=== PATIENT | female | born 1985 | race Caucasian/White ===

== ENCOUNTER 2024-07-06 09:08 | Outpatient (AMB) | payer OTHER, SELFPAY ==
--- NOTE | 2024-07-06 09:10 | MHC.PC.OV ---
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 Adult Probation Officer Required: No Is last menstrual period known: No (on control) Post menopausal: No Patient : No Allergies amoxicillin Allergy (Intermediate, Verified 07/06/24 09:34) hives Medication List - Last Reviewed 07/06/24 by Charu Rios MA atorvastatin 10 mg PO BEDTIME betamethasone dipropionate 0.05% 1 appl topical DAILY PRN clascoterone 1% (Winlevi) 1 appl topical DAILY desipramine 20 mg PO BEDTIME desogestrel-ethinyl estradiol 0.15-0.03 mg (Apri) 1 tab PO DAILY estradiol 0.01%(0.1mg/gram) 1 g vaginal 2XW folic acid 1 mg PO DAILY guanfacine 2 mg PO DAILY mecobalamin (vitamin B12) 1,000 mcg PO DAILY methotrexate (PF) 20 mg subcut QWEEK secukinumab (Cosentyx) 150 mg subcut Q4W tacrolimus-niacinamide 0.1-4 % ea topical vortioxetine (Trintellix) 10 mg PO DAILY Tobacco use date assessed: 07/06/24 Dental Screening Dental Screen Date: 07/06/24 Did you have a dental visit in the last 12 months?: No Did you have a dental problem in the last 6 months where you did not have access to dental care?: No Was dental information given to patient?: Yes HPI HPI Comments History of Present Illness Details New patient Prior PCP:?[facility] Relocated from [facility] to [facility] a year ago Last office visit/CPE: About 6-8 months Last PE was 6 years ago Acute issue(s): HDL -She is on atorvastatin 10 mg at bedtime Acne -She is on Clascoterone 1%, 1 application twice daily Depression -She is on desipramine 20 mg at bedtime and vortioxetine 10 mg daily ADHD -She is on guanfacine 2 mg daily Athralgia multiple sites -She is on methotrexate 20 mg subcut every week and secukinumab 150mg subcut every 4 weeks Vaginal dryness -She is on estradiol 1 g vaginal 2 times weekly Psoriasis -She is on tacrolimus-niacinamide She is on daily OCP She admits to making healthy lifestyle changes, however, she has not been able to exercise due to busy work schedule. She also has difficulty maintaining sleep. Her mood is controlled She sees a psychiatrist every 2 months. She has history of psychotherapy, not followed by a therapist and is considering establishing with one She requests an ENT referral for history of sinusitis and chronic dryness of her sinuses PMHx: Arthralgia multiple sites, cervicalgia, low back pain, scoliosis, ankylosing spondylitis, Marci-Danlos, osteopenia, TMJ dysfunction, psoriasis arthropathic, hyperlipidemia, endometriosis, celiac disease, ADHD inattentive type, anxiety, depression, dermatillomania, trichotillomania, ADHD, acid reflux, sinusitis, asthma, atrophy (senile) of uterus, vaginal dryness, chronic dry eyes, acne SurgHx: None FHx: Mom: DM, HTN. Dad: cancer, HLD. PGM: Ca, HLD SocHx: Nonsmoker. Does not drink alcohol. No recreational drugs Last Eye exam 4 years ago Last pap smear test was 2 years ago at her former [facility]. She requests a referral to an paper pattern inspector Last DEXA scan was on 12/23/2023: T-score lumbar-2.1, femoral neck -0.6, FRAX 3.6%/0.1% (review of Rheumatology record) Last tetanus vaccine is probably in 2018 She is vaccinated for the flu She has h/o adverse reaction from the covid vaccine, including flu-like symptoms and chest pain She is followed by Dr. Stokes, Rhematology, [facility] [place] She is followed by Argenis Chong PA-C, [facility] She is followed by a Dr. Nunez psychiatrist, [facility] Medical History (Updated 07/06/24 @ 10:39 by Kalani Valdes CNP) Dermatillomania Trichotillomania ADHD Depression Anxiety Atrophy (senile) of uterus Vaginal dryness Acid reflux Scoliosis Ankylosing spondylitis Psoriatic arthritis High cholesterol Sinusitis Asthma Family History (Updated 07/06/24 @ 09:41 by Charu Rios MA) Mother High blood pressure Diabetes Father High cholesterol Cancer Paternal Grandmother High cholesterol Cancer Sister FH: mental illness Social History Housing: House Patient Tobacco Use Status: Never used Tobacco e-Cigarette/Vaping Use: Never Used Second Hand Smoke Exposure: No service: No Current occupational status: employed 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 1. Little interest or pleasure in doing things: more than half the days 2. Feeling down, depressed, or hopeless: more than half the days 3. Trouble falling or staying asleep, or sleeping too much: several days 4. Feeling tired or having little energy: nearly every day 5. Poor appetite or overeating: several days 6. Feeling bad about yourself - or that you are a failure or have let yourself or your family down: several days 7. Trouble concentrating on things, such as reading the newspaper or watching television: more than half the days 8. Moving or speaking so slowly that other people could have noticed. Or the opposite - being so fidgety or restless that you have been moving around a lot more than usual: not at all 9. Thoughts that you would be better off or of hurting yourself in some way: not at all Total score: 12 Depression Screening Interpretation: Positive Depression Screening Follow-up: Existing condition, In treatment and Community Mental Health Worker F/U Depression Screening Done: Yes 06330 - PHQ-9 Billing: Yes Source: Developed by Drs. Anthony Segal, Margy Ghosh, Ramin Kaur and colleagues, with an educational tiffany from [employer]. Thrive Questionnaire Date Thrive assessed: 07/06/24 I am a: Patient What is your living situation today?: I have a steady place to live Within the past 12 months, did the food you bought not last and you didn't have the money to get more?: Never true Within the past 12 months, did you worry whether your food would run out before you got money to buy more?: Never true Do you have trouble paying for medicines?: No Do you have trouble getting transportation to medical appointments?: No Do you have trouble paying your heating and electricity bill?: No Do you have trouble taking care of your child, family member or friend?: No Do you have trouble with day-to-day activities such as bathing, preparing meals, shopping, managing finances, etc.?: No Are you currently unemployed and looking for a job?: No Are you interested in more education?: Yes Please select the resources that you would like help with: Education Currently or been in a relationship where the following occur: No concerns reported THRIVE Score: 0 AUDIT C Alcohol Use Questionnaire (AUDIT-C) 1. How often do you have a drink containing alcohol?: Never 3. How often do you have six or more drinks on one occasion?: Never Total Score: 0 Score Reviewed/Action Taken: Yes ALVAREZ-7 AMB Questionnaire ALVAREZ-7 Date ALVAREZ - 7 assessed: 07/06/24 Feeling nervous, anxious, or on edge: 1 = Several days Not being able to stop or control worryin = Several days Worrying too much about different things: 1 = Several days Trouble relaxin = Several days Being so restless that it is hard to sit still: 0 = Not at all Becoming easily annoyed or irritable: 0 = Not at all Feeling afraid as if something awful might happen: 1 = Several days Total ALVAREZ-7 score (0-4 normal; 5-9 mild; 10-14 moderate; 15-21 severe): 5 Source: Developed by Drs. Anthony Segal, Margy Ghosh, Ramin Kaur and colleagues, with an educational tiffany from [employer]. ALVAREZ-7 Assessment Billing ALVAREZ-7 Assessment Tool: ALVAREZ-7 Assessment 94618 Review of Systems Const Details: Denies chills, Denies fatigue, Denies fever(s), Denies headache(s) and Denies weakness HEENT Denies change in vision, Denies dizziness, Denies headache(s), Denies hearing loss, Denies nasal congestion, Denies sinus pain, Denies sinus pressure and Denies sore throat Card Denies chest pain, Denies lightheadedness, Denies dyspnea and Denies other (palpitations) Resp Denies cough, Denies dyspnea and Denies wheezing GI Denies abdominal pain, Denies melena, Denies hematochezia, Denies change in bowel habits, Denies dyspepsia and Denies nausea Denies hematuria and Denies dysuria Musc Denies abnormal gait, Denies myalgias, Denies arthralgias, Denies numbness and Denies tingling Skin/Breast Denies rash, Denies unusual bruising and Denies wounds Neuro Denies abnormal gait, Denies dizziness, Denies headache(s), Denies memory loss, Denies numbness, Denies Sensory deficit (Neuro), Denies tingling and Denies weakness Psych Denies anxiety, Denies depression and Denies memory loss Endo Denies cold intolerance, Denies fatigue, Denies heat intolerance, Denies polydipsia and Denies polyuria Mack/Lymph Denies easy bleeding and Denies easy bruising Aller/Immun Denies wheezing Physical exam (Primary Care) Vital Signs: Last Vital Signs Temp 98.6 F 07/06/24 09:26 Pulse 109 H 07/06/24 09:26 Resp 16 07/06/24 09:26 BP 118/80 07/06/24 09:26 Pulse Ox 100 07/06/24 09:26 Oxygen Delivery Method Room Air 07/06/24 09:26 BMI result Body Mass Index 28.3 Tobacco/Smoking Status: Tobacco use Status Tobacco use date assessed 07/06/24 07/06/24 09:26 Patient Tobacco Use Status Never used Tobacco 07/06/24 09:26 e-Cigarette/Vaping Use Never Used 07/06/24 09:26 PHQ-9: PHQ-9 Score PHQ-9: Total score 12 07/06/24 12:00 Depression Screening Interpretation: Positive Depression Screening Follow-up: Existing condition, In treatment and Community Mental Health Worker F/U Thrive Assessment: Date of Thrive Assessment Date Thrive assessed 07/06/24 07/06/24 09:26 Currently or been in a relationship where the following occur: No concerns reported Const Other: General: no acute distress, well developed, alert and awake Nutritional Appearance: well nourished Orientation/consciousness: patient oriented x3 HENMT Head: Yes normocephalic and Yes atraumatic Ears: hearing grossly normal bilaterally and TM's normal bilaterally General nose exam: Normal external nose present and Normal nares present Mouth: Normal oral and palatal mucosa present and moist mucous membranes Teeth and gingiva: dentition normal Throat: Yes oropharynx normal Eyes Pupils: Equal, round and reactive pupils present and Pupil accommodation reflex normal EOM: EOMs intact bilaterally Neck Neck: Yes normal visual inspection, Yes no lymphadenopathy and Yes trachea midline Thyroid: Thyroid normal Carotids: no bruits Lymphatic: no lymphadenopathy noted Chest Chest palpation & inspection: normal inspection of the chest Resp Effort & Inspection: normal respiratory effort Auscultation: clear to auscultation bilaterally Cardio Rate: regular rate Rhythm: regular rhythm Heart sounds: S1 normal heart sound present, S2 normal heart sound present, no gallops, no murmurs and no rubs Bruits: no abdominal aortic bruits and no carotid bruits GI Palpation (GI): No Abdominal aortic bruit present, Soft to palpation, nontender, No hepatosplenomegaly present and No Rebound tenderness present Auscultation: normal bowel sounds General: Yes no CVA tenderness Back/Spine/Pelvis Back: no CVA tenderness Cervical Spine: cervical ROM normal and No Cervical spine tenderness Thoracic/Lumbar Spine: thoraco-lumbar ROM normal, No pain with thoraco-lumbar ROM, No thoracic spinal tenderness and No lumbar spinal tenderness Skin General: warm and dry. Normal skin color. Normal skin turgor Lesions: no lesions Rashes: no rashes Trauma: no lacerations or abrasions Wounds: no wounds Nails: normal Neuro General: patient oriented x3, gait normal and CN's II-XI intact bilaterally Cranial nerves: Yes Equal, round and reactive pupils present Cognition (Neuro): normal cognition Gait exam (Neuro): Normal gait present Motor exam (neuro): 5/5 motor strength present throughout Sensory Exam: No Sensory deficit (Neuro) Deep tendon reflexes (DTR's): Right patellar reflex intensity grade: 2+ and Left patellar reflex intensity grade: 2+ Extrem General: Yes normal to inspection, No edema and No calf tenderness Psych Appearance: grossly normal Affect: normal affect Attitude: cooperative Thought process: Normal thought process present Coding Level of Care Code New Pt Level 3 (05232) New Pt Prev Care 18-39yr(90599 Diagnoses Normal physical examination, routine Z00.00 H/O sinusitis Z87.09 Eye exam, routine Z01.00 Pap smear for cervical cancer screening Z12.4 Laboratory tests ordered as part of a complete physical exam (CPE) Z00.00 Additional Codes ALVAREZ-7 Assessment Billing - ALVAREZ-7 Assessment Tool: ALVAREZ-7 Assessment 38458 ([id number]) Assessment & Plan Assessment & Plan (1) Normal physical examination, routine: Code(s): Z00.00 - Encounter for general adult medical examination without abnormal findings Category: Medical Plan: No significant functional limitations noted Continue current treatment regimen Healthy diet and routine exercise encouraged Advised to establish with a dentist for routine dental care Follow-up with specialists as planned She met with our CHW who will refer her to a therapist Encouraged to get lab work done in follow-up in 2-3 weeks for telehealth visit for labs review Return sooner with symptoms or concerns Verbalized understanding and agreed with the treatment plan (2) H/O sinusitis: Code(s): Z87.09 - Personal history of other diseases of the respiratory system Category: Medical Plan: She reports history of sinusitis and chronic dryness of her sinuses and request and ENT referral ENT referral made (3) Eye exam, routine: Code(s): Z01.00 - Encounter for examination of eyes and vision without abnormal findings Category: Medical Plan: Last Eye exam 4 years ago Ophthalmology referral made for routine eye exam (4) Pap smear for cervical cancer screening: Code(s): Z12.4 - Encounter for screening for malignant neoplasm of cervix Category: Medical Plan: Last pap smear test was 2 years ago at her former [facility]. She requests a referral to an paper pattern inspector Referred to [facility] nursing staff development coordinator (5) Laboratory tests ordered as part of a complete physical exam (CPE): Code(s): Z00.00 - Encounter for general adult medical examination without abnormal findings Category: Medical Plan: Fasting labs ordered as part of a complete physical exam. Advised to fast for at least 10 hours before getting labs drawn. May drink water Verbalized understanding and agreed with treatment plan. Orders: Orders Complete Blood Count Auto Diff Today Z00.00 - Encounter for general adult medical examination without abnormal findings Lipid Panel Today Z00.00 - Encounter for general adult medical examination without abnormal findings TSH reflex Free T4 Today Z00.00 - Encounter for general adult medical examination without abnormal findings Comprehensive [place]. Panel Fast Today Z00.00 - Encounter for general adult medical examination without abnormal findings UA CC w/rflx Micro + Cult Today Z00.00 - Encounter for general adult medical examination without abnormal findings Microalbumin, Random (w Creat) Today Z00.00 - Encounter for general adult medical examination without abnormal findings Referrals Ear/Nose/Throat Referral Z87.09 - Personal history of other diseases of the respiratory system TOOL MACHINE SET UP OPERATOR Referral Z12.4 - Encounter for screening for malignant neoplasm of cervix Ophthalmology Referral Z01.00 - Encounter for examination of eyes and vision without abnormal findings Medications: New atorvastatin 10 mg PO BEDTIME 30 tabs 3RF 30 days estradiol 0.01%(0.1mg/gram) 1 g vaginal 2XW 42.5 grams 2RF desogestrel-ethinyl estradiol 0.15-0.03 mg (Apri) 1 tab PO DAILY 84 tabs 3RF
[2024-07-06 09:26] VITALS: BP 118/80; PULSE 109; RESP 16; TEMP 37; O2SAT 100; BMI 28.3
== END 2024-07-06 10:28 | disposition home or self-care (01) ==
PROVIDERS: Visit Provider Nurse Practitioner Family
DX: Z00.00 Encounter for general adult medical examination without abnormal findings (principal); Z87.09 Personal history of other diseases of the respiratory system

== ENCOUNTER → 2024-07-06 09:08 | Outpatient (BNVA) | payer OTHER, SELFPAY | PROVIDERS: Visit Provider Nurse Practitioner Family | DX: Z00.00 Encounter for general adult medical examination without abnormal findings (principal); Z87.09 Personal history of other diseases of the respiratory system | CPT/HCPCS: 96127 ==

== ENCOUNTER 2024-07-08 08:00 | Outpatient (REF) | payer OTHER, SELFPAY ==
[2024-07-08 11:12] LABS: Appearance Urine Clear; Color Urine Yellow; Glucose Urine UA Negative (Negative); Leukocyte Esterase Urine Negative (Negative); Nitrite Urine Negative (Negative); PH 5.5 (5.0-9.0); Specific Gravity - Urine >= 1.030 (1.005-1.025); Urine Blood Negative (Negative); Urine Ketones Negative (Negative); Urine Protein Negative (Neg-Trace)
[2024-07-08 11:30] LABS: MANUAL DIFF FLAG NO
[2024-07-08 11:36] LABS: Basophils Percent Auto 0.3 % (0-2); Eosinophils Absolute Auto 0.1 X10*3/uL (0.0-0.4); Eosinophils Percent Auto 1.9 % (0-4); Hemoglobin 12.1 g/dl (12.0-16.0); Imm Gran Abs Auto 0.03 X10*3/uL (0.00-0.03); Imm Gran Pct Auto 0.4 % (0.0-0.4); Lymphocytes Absolute Auto 2.5 X10*3/uL (1.2-4.9); Lymphocytes Percent Auto 34.3 % (20-40); Mean Corpuscular HGB Conc 32.7 g/dl (31.0-35.0); Mean Corpuscular Hemoglobin 30.9 pg (27.0-33.0); Mean Corpuscular Volume 94.4 fL (80.0-98.0); Mean Platelet Volume 9.6 fL (9.4-12.3); Monocytes Absolute Auto 0.5 X10*3/uL (0.1-1.2); Monocytes Percent Auto 6.6 % (2-11); Neutrophils Absolute Auto 4.1 x10*3/uL (2.0-8.3); Neutrophils Percent Auto 56.5 % (45-73); Platelet Count 359 X10*3/uL (160-400); Red Blood Count 3.92 X10*6/uL (4.20-5.50); Red Cell Distribution Width 12.7 % (11.0-16.0); White Blood Count 7.3 X10*3/uL (4.8-10.8)
[2024-07-08 12:26] LABS: Alanine Aminotransferase 13 U/L (0-31); Albumin Level 3.8 g/dL (3.5-5.0); Alkaline Phosphatase 97 U/L (39-117); Anion Gap 12 (12-20); Aspartate Amino Transferase 22 U/L (5-31); Bilirubin Total 0.2 mg/dL (0.0-1.0); Blood Urea Nitrogen 11 mg/dL (9-16); Calcium 9.1 mg/dL (8.4-10.2); Carbon Dioxide 23 mmol/L (22-29); Chloride 110 mmol/L (96-108); Cholesterol 198 mg/dL (<200); Estimated Glomerular Filt Rate > 60; Glucose Fasting 90 mg/dL (60-99); HDL Cholesterol 63 mg/dL (>40); LDL Cholesterol Calculated 109 mg/dL (<100); Potassium 3.9 mmol/L (3.3-5.1); Sodium 141 mmol/L (135-145); Total Protein 6.9 g/dL (6.5-8.0); Triglycerides 133 mg/dL (<150)
[2024-07-08 12:34] LABS: Creatinine Urine 194.66 mg/dL; Microalbum/Creatinine Ratio Ur 7.1 ug/mg cr (<30)
[2024-07-08 12:42] LABS: TSH reflex Free T4 2.21 uIU/mL (0.32-4.0)
== END 2024-07-08 08:01 | disposition home or self-care (01) ==
LOC: HO.WFDLDS 08:00
PROVIDERS: Visit Provider Nurse Practitioner Family
DX: Z00.00 Encounter for general adult medical examination without abnormal findings (principal)
CPT/HCPCS: 36415; 80053; 80061; 81003; 82043; 82570; 84443; 85025

== ENCOUNTER 2024-10-06 09:45 | Outpatient (REF) | payer OTHER, SELFPAY ==
--- OUTSIDE RECORDS SUMMARY | 2024-10-06 13:23 | XMS_ITS | Continuity of Care Document ---
Author Organization [facility] Address [address] [place] [address] Phone Care Team Providers Care Manager Shipping Name Role Phone No Information Unavailable Unavailable Advance Directives Directive Yes / No Effective Date File Name No Information Encounters Encounter Description Practice Location Reason(s) For Visit Diagnoses Date Provider Providers Copied on Encounter Medical Clinic [facility], [address], [place], [place], [id number], [place] tel:[phone] No Information No Information Family History Family Member Type Diagnosis Age At Onset No Information Payers Payer name Insurance type Covered alliance party ID Authoriza tion(s) No Information Social History Type Description Quantity Date Captured Comments Sex Female Smoking Status No Information Chief Complaint And Reason For Visit No Information Reason For Referral Reason For Referral No Information History Of Present Illness Encounter Date Complaint History Of Prese nt Illness No Information Functional Status Date Functional Assessmen t No Information Instructions Date Instruction Additional Infor mation No Information Assessments Type Assessment Date No Information Patient Care Teams Name Effective Dates (start - stop) Status Members No Information
[2024-10-07 03:31] LABS: CT PCR NOT DETECTED (Not Detect.); NG PCR NOT DETECTED (Not Detect.)
[2024-10-07 13:49] LABS: Bacterial Vaginosis PCR NEGATIVE (Negative); Candida Group PCR NOT DETECTED (Not Detect); Candida glab krusei PCR NOT DETECTED (Not Detect); Trichomonas vaginalis PCR NOT DETECTED (Not Detect)
== END 2024-10-06 09:46 | disposition home or self-care (01) ==
LOC: HO.LAB 09:45
PROVIDERS: PCP Nurse Practitioner Family; Visit Provider Advanced Practice Midwife
DX: Z01.411 Encounter for gynecological examination (general) (routine) with abnormal findings (principal); N94.10 Unspecified dyspareunia; N89.8 Other specified noninflammatory disorders of vagina; Z79.631 Long term (current) use of antimetabolite agent; Z87.42 Personal history of other diseases of the female genital tract; Z20.2 Contact with and (suspected) exposure to infections with a predominantly sexual mode of transmission
CPT/HCPCS: 81515; 87491; 87591

== ENCOUNTER 2024-12-24 09:58 | Outpatient (REF) | payer OTHER, SELFPAY ==
--- NOTE | ~2024-12-24 | XR_ITS ---
EXAMINATION: XR PARANASAL SINUSES 3 VIEWS HISTORY: SINUSITIS COMPARISON: There are no prior studies for comparison. FINDINGS: Four views of the paranasal sinuses are submitted. The bilateral frontal, maxillary, ethmoid, and sphenoid sinuses are well-aerated and clear. The mastoid air cells are normally pneumatized. XR/XR sinus min 3V IMPRESSION: Unremarkable examination of the paranasal sinuses. Electronically signed by: Anthony Del Rio MD 12/24/2024 11:00 AM EDT
--- OUTSIDE RECORDS SUMMARY | 2024-12-24 11:35 | XMS_ITS | Continuity of Care Document ---
Author Organization [facility] Address [address] [place] [address] Phone Care Team Providers Care Clerk Cashier Name Role Phone No Information Unavailable Unavailable Advance Directives Directive Yes / No Effective Date File Name No Information Encounters Encounter Description Practice Location Reason(s) For Visit Diagnoses Date Provider Providers Copied on Encounter Medical Clinic [facility], [address], [place], [place], [id number], [place] tel:[phone] No Information No Information Family History Family Member Type Diagnosis Age At Onset No Information Payers Payer name Insurance type Covered libertarian ID Authoriza tion(s) No Information Social History [...]
--- OUTSIDE RECORDS SUMMARY | 2024-12-24 11:35 | XMS_ITS | Encounter Summary ---
Author Organization [facility] Address [address] [place] [address] Care Team Providers Care Millwright Instructor Name Role Phone Unavailable Primary Care Provider Unavailabl e Encounter Details Date Type Department Care Team (Late st Contact Info) Description 10/15/2024 Lab Requisition [facility] - Main Lab [address] [facility] [place] [address] Jeronimo Hyde MD [address] [address] Calculus of kidney Social History Tobacco Use Types Packs/Day Years Used Date Smoking Tobacco: Never Assessed Comments Unknown Sex and Gender Information Value Date Recorded Sex Assigned at Not on file Legal Sex Female 1:07 PM EST Gender Identity Not on file Sexual Orientation Not on file documented as of this encounter Plan of Treatment Not on file documented as of this encounter Procedures Procedure Name Priority Date/Time Associated Diagnosis Comments STONE ANALYSIS Routine 10/14/2024 12:00 AM EST Calculus of kidney documented in this encounter Results * Stone analysis (10/14/2024 12:00 AM EST) Component(s) See below 10/20/2024 5:04 PM EST [facility] Comment: 99% Calcium oxalate monohydrate (Whewellite) 1% Carbonate apatite (Dahllite) Stone Weight 0.0079 g 10/20/2024 5:04 PM EST [facility] Comment: This test was developed and its performance characteristics determined by [facility] in a manner consistent with CLIA requirements. This test has not been cleared or approved by the U.S. Food and Drug Administration. Test performed at [facility], [address], [place], [place] [address] ? [phone] Gabrielle Campbell MD, PhD - Steam Tunnel Feeder Calculus 10/14/2024 10/15/2024 1:1 1 PM EST us Jeronimo Hyde MD LAB BODY FLUIDS AND STOO LS ORDERABLES Final Result [facility] [address] [place] [address] documented in this encounter Visit Diagnoses Diagnosis Calculus of kidney documented in this encounter
--- OUTSIDE RECORDS SUMMARY | 2024-12-24 11:35 | XMS_ITS | Clinical Summary ---
Author Organization [address] [facility] Address [address] [place] [address] Phone Care Team Providers Care Manager Home Healthcare Name Role Phone Unavailable Primary Care Provider Unavailabl e Encounters Date Type Department Care Team Description 10/15/2024 Lab Requisition [facility] - Main Lab [address] [facility] [place] [address] Jeronimo Hyde MD Calculus of kidney from Last 3 Months Social History Tobacco Use Types Packs/Day Years Used Date Smoking Tobacco: Never Assessed Comments Unknown Sex and Gender Information Value Date Recorded Sex Assigned at Not on file Legal Sex Female 1:07 PM EST Gender Identity Not on file Sexual Orientation Not on file Plan of Treatment Health Maintenance Due Date Last Done Comments DTaP,Tdap,and Td Vaccines (1 - Tdap) 2006 Hepatitis B Vaccines (1 of 3 - 19+ 3-dose series) 2006 Cervical Cancer Screening: P ap Smear 2008 COVID-19 Vaccine (2023-2 5 season) 2024 Influenza Vaccine (#1) 2024 Depression Screening 10/15/2024 HIV Screening 10/15/2024 Hepatitis C Screening 10/15/2024 Social Influencers of Health Screening 10/15/2024 HIB Vaccines Aged Out No longer eligi ble based on patient's age to complete this topic HPV Vaccines Aged Out No longer eligi ble based on patient's age to complete this topic Hepatitis A Vaccines Aged Out No long er eligible based on patient's age to complete this topic IPV Vaccines Aged Out No longer eligi ble based on patient's age to complete this topic MMR Vaccines Aged Out No longer eligi ble based on patient's age to complete this topic Meningococcal ACWY Vaccine Aged Out N o longer eligible based on patient's age to complete this topic Meningococcal B Vaccine Aged Out No l onger eligible based on patient's age to complete this topic Pneumococcal Vaccine: Pediat rics (0 to 5 Years) and At-Risk Patients (6 to 64 Years) Aged Out No longer eligible b ased on patient's age to complete this topic RSV Immunization Patients Un airam 20 months Aged Out No longer eligible b ased on patient's age to complete this topic Varicella Vaccines Aged Out No longer eligible based on patient's age to complete this topic Procedures Procedure Name Priority Date/Time Associated Diagnosis Comments STONE ANALYSIS Routine 10/14/2024 12:00 AM EST Calculus of kidney from Last 3 Months Results * Stone analysis (10/14/2024 12:00 AM EST) Component(s) See below 10/20/2024 5:04 PM EST [facility] Comment: 99% Calcium oxalate monohydrate (Whewellite) 1% Carbonate apatite (Dahllite) Stone Weight 0.0079 g 10/20/2024 5:04 PM EST [facility] Comment: This test was developed and its performance characteristics determined by [facility] in a manner consistent with CLIA requirements. This test has not been cleared or approved by the U.S. Food and Drug Administration. Test performed at [facility], [address], [place], [place] [address] ? [phone] Gabrielle Campbell MD, PhD - Decontamination Worker Calculus 10/14/2024 10/15/2024 1:1 1 PM EST us Jeronimo Hyde MD LAB BODY FLUIDS AND STOO LS ORDERABLES Final Result [facility] [address] [place] [address] from Last [address] [id number] [facility]
== END 2024-12-24 09:59 | disposition home or self-care (01) ==
LOC: HO.XRAY 09:58
PROVIDERS: PCP Nurse Practitioner Family; Visit Provider Otolaryngology
DX: J32.9 Chronic sinusitis, unspecified (principal)
CPT/HCPCS: 70220

== ENCOUNTER → 2024-12-24 10:19 | Outpatient (BNV) | payer OTHER, SELFPAY | PROVIDERS: PCP Nurse Practitioner Family; Visit Provider Radiology Diagnostic Radiology | DX: J32.9 Chronic sinusitis, unspecified (principal) | CPT/HCPCS: 70220 ==

== ENCOUNTER 2025-01-20 08:28 | Outpatient (REF) | payer OTHER, SELFPAY ==
--- OUTSIDE RECORDS SUMMARY | 2025-01-20 08:42 | XMS_ITS | Encounter Summary ---
Author Organization [facility] Address [address] [place] [address] Care Team Providers Care Finance Mgr Name Role Phone Unavailable Primary Care Provider Unavailabl e Encounter Details Date Type Department Care Team (Late st Contact Info) Description 10/15/2024 Lab Requisition [facility] - Main Lab [address] [facility] [place] [address] Jeronimo Hyde MD [address] [address] Calculus of kidney Social History Tobacco Use [...] developed and its performance characteristics determined by [facility] in a manner consistent with CLIA requirements. This test has not been cleared or approved by the U.S. Food and Drug Administration. Test performed at [facility], [address], [place], [place] [address] ? [phone] Gabrielle Campbell MD, PhD - Gas Dispatcher Calculus 10/14/2024 10/15/2024 1:1 1 PM EST us Jeronimo Hyde MD LAB BODY FLUIDS AND STOO LS ORDERABLES Final Result [facility] [address] [place] [address] documented in this encounter Visit Diagnoses Diagnosis Calculus of kidney documented in this encounter
--- OUTSIDE RECORDS SUMMARY | 2025-01-20 08:42 | XMS_ITS | Patient Health Record ---
Author Organization [facility] Billing Info Address [address] [place] [address] [place] [address] Care Team Providers Care Preventative Maintenance Technician Name Role Phone BISHOP LAMB Primary Care Provider Unavailabl e Reason For Referral No Information Plan Of Treatment No Information Insurance Providers Payer Name Payer Address Payer Phone Subscriber Number Group Number Insured Name Patient Relationship to Insured Coverage Start Date Coverage End Date CIGNA PPO [address] [place], [place] [id number] [phone] [id number] Jessa Dc Self - patient is the insured 8 8
--- OUTSIDE RECORDS SUMMARY | 2025-01-20 08:42 | XMS_ITS | Clinical Summary ---
Author Organization LL [address] [facility] Address [address] [place] [address] Phone Care Team Providers Care Teacher Music Name Role Phone Unavailable Primary Care Provider Unavailabl e Social History Tobacco Use Types Packs/Day Years [...] 2008 COVID-19 Vaccine (2023-2 5 season) 2024 Depression Screening 10/15/2024 HIV Screening 10/15/2024 Hepatitis C Screening 10/15/2024 Social Influencers of Health Screening 10/15/2024 Influenza Vaccine (Season Ended) 2025 HIB Vaccines Aged Out No longer eligi [...] on patient's age to complete this topic Insurance [facility]
--- OUTSIDE RECORDS SUMMARY | 2025-01-20 08:42 | XMS_ITS | Continuity of Care Document ---
Author Organization [facility] Address [address] [place] [address] Phone Care Team Providers Care Bander And Cellophaner Machine Name Role Phone No Information Unavailable Unavailable Advance Directives Directive Yes / No Effective Date File Name No Information Encounters Encounter Description Practice Location Reason(s) For Visit Diagnoses Date Provider Providers Copied on Encounter Medical Clinic [facility], [address], [place], [place], [id number], [place] tel:[phone] No Information No Information Family History Family [...]
[2025-01-20 11:43] LABS: Cholesterol 181 mg/dL (<200); HDL Cholesterol 61 mg/dL (>40); LDL Cholesterol Calculated 88 mg/dL (<100); Triglycerides 163 mg/dL (<150)
== END 2025-01-20 08:29 | disposition home or self-care (01) ==
LOC: HO.WFDLDS 08:28
PROVIDERS: Visit Provider Nurse Practitioner Family
DX: E78.00 Pure hypercholesterolemia, unspecified (principal)
CPT/HCPCS: 36415; 80061

== ENCOUNTER 2025-02-16 09:12 | Outpatient (AMB) | payer OTHER, SELFPAY ==
--- NOTE | 2025-02-16 09:14 | A.OFFPC_ITS ---
Vital Signs 02/16/25 09:20 Height 5 ft 1 in Weight 150 lb BMI 28.3 BP 119/56 L Blood Pressure Location Lt brachial Position Sitting Respiration 16 Pulse 92 Pulse Source Pulse Oximeter Temp 98.4 F Temp Source Oral Pulse Oximetry (%) 99 Oxygen Delivery Method Room Air Intake Visit Reasons: 6month fu hld Intake Note: patient here for 6 month follow up on HLD [address] [employer] Judge Required: No Is last menstrual period known: No ( control) Post menopausal: No Patient : No Allergies amoxicillin Allergy (Intermediate, Verified 02/16/25 09:27) hives Medication List - Last Reconciled 02/16/25 by Kalani Valdes CNP atorvastatin 10 mg PO BEDTIME 30 days betamethasone dipropionate 0.05% 1 appl topical DAILY PRN clascoterone 1% (Winlevi) 1 appl topical DAILY desogestrel-ethinyl estradiol 0.15-0.03 mg (Apri) 1 tab PO DAILY folic acid 1 mg PO DAILY guanfacine 3 mg PO DAILY mecobalamin (vitamin B12) 1,000 mcg PO DAILY methotrexate (PF) 20 mg subcut QWEEK secukinumab (Cosentyx) 150 mg subcut Q4W tacrolimus-niacinamide 0.1-4 % ea topical vortioxetine (Trintellix) 10 mg PO DAILY Tobacco use date assessed: 02/16/25 Dental Screening Dental Screen Date: 02/16/25 Did you have a dental visit in the last 12 months?: No Did you have a dental problem in the last 6 months where you did not have access to dental care?: No Was dental information given to patient?: No (gave it to her last time) HPI HPI Comments History of Present Illness Details 39-year-old female presents for hyperlip idemia follow-up. She admits to taking her medications as prescribed without adverse reactions. She notes depression which has improved since she started TMS; she has few more sessions left. [facility] Medical History (Updated 02/16/25 @ 09:43 by Kalani Valdes CNP) Dermatillomania Trichotillomania ADHD Depression Anxiety Atrophy (senile) of uterus Vaginal dryness Acid reflux Scoliosis Ankylosing spondylitis Psoriatic arthritis High cholesterol Sinusitis Asthma Family History (Updated 07/06/24 @ 09:41 by Charu Rios MA) Mother High blood pressure Diabetes Father High cholesterol Cancer Paternal Grandmother High cholesterol Cancer Sister FH: mental illness Social History Housing: House Patient Tobacco Use Status: Never used Tobacco e-Cigarette/Vaping Use: Never Used Second Hand Smoke Exposure: No service: No Current occupational status: employed 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 1. Little interest or pleasure in doing things: several days 2. Feeling down, depressed, or hopeless: several days 3. Trouble falling or staying asleep, or sleeping too much: more than half the days 4. Feeling tired or having little energy: more than half the days 5. Poor appetite or overeating: not at all 6. Feeling bad about yourself - or that you are a failure or have let yourself or your family down: several days 7. Trouble concentrating on things, such as reading the newspaper or watching television: more than half the days 8. Moving or speaking so slowly that other people could have noticed. Or the opposite - being so fidgety or restless that you have been moving around a lot more than usual: not at all 9. Thoughts that you would be better off or of hurting yourself in some way: not at all Total score: 9 Depression Screening Interpretation: Positive Depression Screening Follow-up: Existing condition and In treatment Depression Screening Done: Yes Source: Developed by Drs. Anthony Segal, Margy Ghosh, Ramin Kaur and colleagues, with an educational tiffany from [employer]. Thrive Questionnaire Date Thrive assessed: 01/22/25 I am a: Patient What is your living situation today?: I have a steady place to live Within the past 12 months, did the food you bought not last and you didn't have the money to get more?: Never true Within the past 12 months, did you worry whether your food would run out before you got money to buy more?: Never true Do you have trouble paying for medicines?: No Do you have trouble getting transportation to medical appointments?: No Do you have trouble paying your heating and electricity bill?: No Do you have trouble taking care of your child, family member or friend?: No Do you have trouble with day-to-day activities such as bathing, preparing meals, shopping, managing finances, etc.?: No Are you currently unemployed and looking for a job?: No Are you interested in more education?: No Please select the resources that you would like help with: None Currently or been in a relationship where the following occur: I choose not to answer THRIVE Score: 0 AUDIT C Alcohol Use Questionnaire (AUDIT-C) 2. How many drinks containing alcohol do you have on a typical day when you are drinking?: 1 or 2 Total Score: 0 ALVAREZ-7 AMB Questionnaire ALVAREZ-7 Date ALVAREZ - 7 assessed: 07/06/24 Source: Developed by Drs. Anthony Segal, Margy Ghosh, Ramin Kaur and colleagues, with an educational tiffany from [employer]. Review of Systems Const Details: Const Denies chills, Denies fatigue, Denies fever(s), Denies headache(s) and Denies weakness ENT Denies dizziness and Denies headache(s) Card Denies chest pain, Denies lightheadedness, Denies dyspnea and Denies other (Palpitations) Resp Denies cough, Denies dyspnea, Denies wheezing and Denies other ( shortness of breath) GI Denies abdominal pain, Denies melena, Denies hematochezia, Denies change in bowel habits, Denies dyspepsia and Denies nausea Denies hematuria and Denies dysuria Musc Denies abnormal gait, Denies myalgias, Denies arthralgias, Denies numbness and Denies tingling Skin/Breast Denies rash, Denies unusual bruising and Denies wounds Neuro Denies abnormal gait, Denies dizziness, Denies headache(s), Denies memory loss, Denies numbness, Denies Sensory deficit (Neuro), Denies tingling and Denies weakness Psych Denies anxiety, Reports depression, Denies memory loss Endo Denies cold intolerance, Denies fatigue, Denies heat intolerance, Denies polydipsia and Denies polyuria Aller/Immun Denies wheezing Physical exam (Primary Care) Vital Signs: Last Vital Signs Temp 98.4 F 02/16/25 09:20 Pulse 92 02/16/25 09:20 Resp 16 02/16/25 09:20 BP 119/56 L 02/16/25 09:20 Pulse Ox 99 02/16/25 09:20 Oxygen Delivery Method Room Air 02/16/25 09:20 BMI result Body Mass Index 28.3 Tobacco/Smoking Status: Tobacco use Status Tobacco use date assessed 02/16/25 02/16/25 09:21 Patient Tobacco Use Status Never used Tobacco 02/16/25 09:16 e-Cigarette/Vaping Use Never Used 02/16/25 09:16 PHQ-9: PHQ-9 Score PHQ-9: Total score 9 02/16/25 09:16 Depression Screening Interpretation: Positive Depression Screening Follow-up: Existing condition and In treatment Thrive Assessment: Date of Thrive Assessment Date Thrive assessed 01/22/25 02/16/25 09:16 Currently or been in a relationship where the following occur: I choose not to answer Const Other: General: no acute distress and well developed Nutritional Appearance: well nourished Orientation/consciousness: patient oriented x3 HENMT Head: Yes normocephalic and Yes atraumatic Eyes General: appearance normal, both eyes and all related structures Pupils: Equal, round and reactive pupils present EOM: EOMs intact bilaterally Resp Effort & Inspection: normal respiratory effort Auscultation: clear to auscultation bilaterally Cardio Rate: regular rate Rhythm: regular rhythm Heart sounds: S1 normal heart sound present, S2 normal heart sound present, no gallops, no murmurs and no rubs GI Palpation (GI): No Abdominal aortic bruit present, Soft to palpation, nontender, No hepatosplenomegaly present and No Rebound tenderness present Auscultation: normal bowel sounds General: Yes no CVA tenderness Back/Spine/Pelvis Back: no CVA tenderness Cervical Spine: cervical ROM normal and No Cervical spine tenderness Thoracic/Lumbar Spine: thoraco-lumbar ROM normal, No pain with thoraco-lumbar ROM, No thoracic spinal tenderness and No lumbar spinal tenderness Extrem General: Yes normal to inspection, No edema and No calf tenderness Skin General: warm and dry. Normal skin color. Normal skin turgor Neuro General: patient oriented x3, gait normal and no focal neuro deficit Cranial nerves: Yes Equal, round and reactive pupils present Cognition (Neuro): normal cognition Gait exam (Neuro): Normal gait present Sensory Exam: No Sensory deficit (Neuro) Psych Appearance: grossly normal Affect: normal affect Attitude: cooperative Thought process: Normal thought process present Coding Level of Care Code Est Pt Level 3 (93071) Diagnoses High cholesterol E78.00 Depression F32.A Laboratory tests ordered as part of a complete physical exam (CPE) Z. Assessment & Plan Assessment & Plan (1) High cholesterol: Code(s): E78.00 - Pure hypercholesterolemia, unspecified Category: Medical Plan: Recent triglyceride level is slightly elevated, 163. Total cholesterol, LDL, and HDL levels are normal. Continue current treatment regimen. Advised to limit foods high in saturated fat and avoid foods high in trans fat. Routine exercise encouraged. Fast for 10-12 hours, may drink water, and perform lab work a few days before next visit. Follow-up for an extended physical exam and labs review on/after 07/06/2025. Return sooner with symptoms or concerns. Verbalized understanding and agreed with the treatment plan. (2) Depression: Code(s): F32.A - Depression, unspecified Category: Medical Plan: She notes that her depression have improve since she started TMS; she has few more sessions left. PHQ-9 score revealed mild depression. Continue current treatment regimen. Routine exercise encouraged. Follow-up with psychiatrist as planned. Verbalized understanding and agreed with the treatment plan. (3) Laboratory tests ordered as part of a complete physical exam (CPE): Code(s): Z. - Encounter for general adult medical examination without abnormal findings Category: Medical Plan: Fasting labs ordered as part of a complete physical exam. Advised to fast for at least 10 hours before getting labs drawn. May drink water Verbalized understanding and agreed with treatment plan. Orders: Orders Complete Blood Count Auto Diff 4 Months Z00.00 - Encounter for general adult medical examination without abnormal findings Lipid Panel 4 Months E78.00 - Pure hypercholesterolemia, unspecified Comprehensive Elton. Panel Fast 4 Months Z00.00 - Encounter for general adult medical examination without abnormal findings Microalbumin, Random (w Creat) 4 Months Z00.00 - Encounter for general adult medical examination without abnormal findings TSH reflex Free T4 4 Months Z00.00 - Encounter for general adult medical examination without abnormal findings UA CC w/rflx Micro + Cult 4 Months Z00.00 - Encounter for general adult medical examination without abnormal findings Vitamin D 25-OH Total 4 Months Z00.00 - Encounter for general adult medical examination without abnormal findings
[2025-02-16 09:20] VITALS: BP 119/56; PULSE 92; RESP 16; TEMP 36.9; O2SAT 99; BMI 28.3
--- OUTSIDE RECORDS SUMMARY | 2025-02-16 10:05 | XMS_ITS | Clinical Summary ---
Author Organization LL [address] [facility] Address [address] [place] [address] Phone Care Team Providers Care Healthcare Science Specialist Name Role Phone Unavailable Primary Care Provider [...] patient's age to complete this topic Insurance [facility]
== END 2025-02-16 09:43 | disposition home or self-care (01) ==
LOC: HO.HMCFM 09:13
PROVIDERS: PCP Nurse Practitioner Family; Visit Provider Nurse Practitioner Family
DX: E78.00 Pure hypercholesterolemia, unspecified (principal); F32.A Depression, unspecified; Z00.00 Encounter for general adult medical examination without abnormal findings

== ENCOUNTER → 2025-02-16 09:12 | Outpatient (BNVA) | payer OTHER, SELFPAY | PROVIDERS: PCP Nurse Practitioner Family; Visit Provider Nurse Practitioner Family ==

== ENCOUNTER 2025-02-18 07:33 | Outpatient (AMB) | payer OTHER, SELFPAY ==
[2025-02-18 07:33] VITALS: BMI 28.3
--- NOTE | 2025-02-18 07:33 | MHC.OFFVIS ---
Vital Signs 02/18/25 07:33 Height 5 ft 1 in Weight 150 lb BMI 28.3 Intake Visit Reasons: Endometriosis/Per Brittaney/DO NOT RS Respite Provider Required: No Information Interpreted: non-clinical & clinical Accompanied by: Self / Same As Patient Allergies amoxicillin Allergy (Intermediate, Verified 02/18/25 07:34) hives Is last menstrual period known: No HPI Comments Details: Presenting complaining of chronic pelvic pain of 15+ years duration; it is described as present most of the time on a daily basis, bilateral, worse during menstrual cycles, the patient was started on continuous control pills over the last few years but the pain has gotten worse. It is with bowel movement, urination, intercourse and is positional. Patient the patient is complaining of eye, mouth sinus and vaginal dryness over the years in spite of being on continuous control pills and was prescribed a vaginal estrogen cream that did not improve her symptoms neither did vaginal lubricants Ultrasound of the pelvis done in 10/10 was unremarkable GC/CT with BV panel done recently were negative [facility] Medical History Dermatillomania Trichotillomania ADHD Depression Anxiety Atrophy (senile) of uterus Vaginal dryness Acid reflux Scoliosis Ankylosing spondylitis Psoriatic arthritis High cholesterol Sinusitis Asthma Family History Mother High blood pressure Diabetes Father High cholesterol Cancer Paternal Grandmother High cholesterol Cancer Sister FH: mental illness Social History Housing: House Patient Tobacco Use Status: Never used Tobacco e-Cigarette/Vaping Use: Never Used Second Hand Smoke Exposure: No service: No Current occupational status: employed 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 Current occupational exposures/hazards: No Cognitive needs: No Hearing needs: No Vision needs: Yes Female Reproductive History Menstrual Age of Menarche: 14 control method: pills Review of Systems Const All systems reviewed & are unremarkable except as noted in HPI and below Reports as per HPI and Reports no additional complaints GI Reports no additional complaints Reports no additional complaints Physical Exam Vital Signs: BMI result Body Mass Index 28.3 Assessment & Plan Assessment & Plan (1) Chronic pelvic pain in female: Comment: Possible endometriosis Code(s): R10.2 - Pelvic and perineal pain; G89.29 - Other chronic pain Category: Medical Plan: Discussed with the patient the differential diagnosis of chronic pelvic pain including but not limited to endometriosis. Explained to the patient that her symptoms are suggestive of possible endometriosis with pelvic adhesions, will refer to [facility] General endometriosis endometriosis specialist. Instructed the patient to call our office back in case a referral appointment is not scheduled, missed or canceled so that we will assist on rescheduling another appointment, the patient verbalized understanding agreed with the plan. (2) Vaginal dryness: Code(s): N89.8 - Other specified noninflammatory disorders of vagina Category: Medical Plan: Discussed with the patient that given her history of autoimmune diseases, and systemic symptomatic dryness in her eyes sinuses, mouth and in her vagina, there is a high clinical suspicion of autoimmune causes for her vaginal dryness especially that the patient has been on control pills and local vaginal cream with no improvement; in addition infectious causes have been ruled out recently. Recommended to schedule an appointment with her stone unloader for further investigation. All questions answered, the patient verbalized understanding Orders: Referrals CLEAN RICE GRADER AND REEL TENDER Referral G89.29 - Other chronic pain, R10.2 - Pelvic and perineal pain Coding Level of Care Code Est Pt Level 3 (62632) Diagnoses Chronic pelvic pain in female R10.2; G89.29 Vaginal dryness N89.8
== END 2025-02-18 08:17 | disposition home or self-care (01) ==
LOC: HO.HWS 07:33
PROVIDERS: PCP Nurse Practitioner Family; Visit Provider Obstetrics & Gynecology
DX: R10.2 Pelvic and perineal pain (principal); G89.29 Other chronic pain; N89.8 Other specified noninflammatory disorders of vagina
CPT/HCPCS: 99213

== ENCOUNTER → 2025-02-18 07:33 | Outpatient (BNVA) | payer OTHER, SELFPAY | PROVIDERS: PCP Nurse Practitioner Family; Visit Provider Obstetrics & Gynecology ==

== ENCOUNTER 2025-05-03 08:55 | Outpatient (AMB) | payer OTHER, SELFPAY ==
--- OUTSIDE RECORDS SUMMARY | 2025-05-03 09:23 | XMS_ITS | Clinical Summary ---
Author Organization LL 299 [facility] Address [address] [place] [address] Phone Care Team Providers Care Plant And Machinery Valuer Name Role Phone Unavailable Primary Care Provider [...] Vaccine (2023-2 5 season) 2024 Depression Screening 09/16/2024 HIV Screening 10/15/2024 Hepatitis C Screening 10/15/2024 Social Influencers of Health Screening 10/15/2024 Influenza Vaccine (#1) 2025 HIB Vaccines Aged Out No longer [...] 5 Years) and At-Risk Patients (6 to 49 Years) Aged Out No longer eligible b ased on patient's age to complete this topic RSV Immunization Patients Un airam 20 months Aged Out No longer eligible b ased on patient's age to complete this topic Varicella Vaccines Aged Out No longer eligible based on patient's age to complete this topic Insurance [facility]
--- OUTSIDE RECORDS SUMMARY | 2025-05-03 09:23 | XMS_ITS | Patient Health Record ---
Author Organization [facility] Address [id number] [facility] [address] [place] [id number] Care Team Providers Care Metal Refiner Name Role Phone Anthony Najera Primary Care Provider Allergies Allergen (clinical drug ingredient) Drug/Non Drug Allergy documented on EMR Reaction Allergy Type Onset Date Status amoxicillin Amoxicillin Unknown Drug Allergy Act girish erythromycin Erythromycin Unknown Drug Allergy A ctive Reason For Referral No Information Medications Medication SIG (Take, Route, Frequency, Duration) Notes Start Date End Date Status Q-Ohjsmx-W-Cysteine OTC Active L-Tyrosine 500 MG 1 capsule Orally Onc e a day OTC Active Cannabidiol 100 MG/ML as directed Orally 50 mg Active Tamiflu 75 MG 1 capsule Orally Twi ce a day; Duration: 5 day(s) 09/04/2019 Active LARRY-e OTC Active Flexeril 10 MG 1 tablet 1 to 2 hour s before bedtime Orally Once a day; Duration: 30 day(s) Active Collagen 500 MG as directed Orally 20 mg Active Vitamin D-3 5000 UNIT/ML 1 ml under the tongue Sublingual Once a day; Duration: 30 day(s) 1000 iu Active ZyrTEC 10 MG 1 tablet Orally Once a day OTC Active Sudafed 12 Hour 120 MG 1 tablet as neede d Orally every 12 hrs OTC Active Inositol OTC Active Curcumin 95 500 MG Orally OTC A ctive Immunizations Vaccine Route Administration Date Status Comme nts Influenza Single Reg Commercial Unknown 06/16/2021 Administered [facility] Social History Tobacco Use: Social History Observation Description Date Details (start date - stop date) Never Smoker NA - NA Tobacco Use/Smoking Question Answer Notes Are you a nonsmoker Alcohol Screen Question Answer Notes Did you have a drink contain ing alcohol in the past year? Yes How often did you have a dri nk containing alcohol in the past year? Monthly or less (1 point) Points 1 Plan Of Treatment No Information Insurance Providers Payer Name Payer Address Payer Phone Subscriber Number Group Number Insured Name Patient Relationship to Insured Coverage Start Date Coverage End Date CIGNA PPO [address] [place] [phone] [id number] Jessa Newton Self - patient is the insured 2018 Medical (General) History Medical History History ICD Code gerd depression trichotillomania scoliosis eczema periodontal endometriosis celiac (undiagnosed) asthma lactose intolerance migrains broken bone left and right hand Surgical History Surgery Date(Month/Year) Hospitalization History Reason Date(Month/Year) ear infecton 09/01/19
--- OUTSIDE RECORDS SUMMARY | 2025-05-03 09:24 | XMS_ITS | Patient Health Record ---
Author Organization [facility] Billing Info Address [address] [place] [address] [place] [address] Care Team Providers Care Tile Setter Supervisor Name Role Phone BISHOP LAMB Primary Care Provider Unavailabl e Reason For Referral No Information Plan Of Treatment No Information Insurance Providers Payer Name Payer Address Payer Phone Subscriber Number Group Number Insured Name Patient Relationship to Insured Coverage Start Date Coverage End Date [employer] [id number] [address] [place], [place] [id number] [phone] [id number] Jessa Dc Self - patient is the insured 8 8
--- OUTSIDE RECORDS SUMMARY | 2025-05-03 09:24 | XMS_ITS | Clinical Summary ---
Author Organization [facility] Address [address] [address] Phone Care Team Providers Care Floor Layer Name Role Phone Kalani Valdes [facility] TRAFFIC CONTROL [facility]IST [facility] Primary Care Provider +1- [phone] Allergies Active Allergy Reactions Criticality Noted Date Comments Adhesive Itching,Rash Low 04/06/2025 Amoxicillin Hives Low 04/06/2025 Atomoxetine Other (See Comments) 04/06/2025 Desipramine Other (See Comments) 04/06/2025 Dextroamphetamine-Amphetamine Fatigue,GI Upset,Nausea and/or Vomiting Low 04/06/2025 Erythromycin Nausea and/or Vomiting,Other (See Comments) Low 02/09/2013 VOMITING Gluten Diarrhea,GI Upset,Joint Pain,Nausea and/or Vomiting,Other (See Comments) Low 04/06/2025 Hydroxychloroquine Diarrhea,GI Upset,Nausea and/or Vomiting 04/06/2025 Sulfasalazine Diarrhea,GI Upset,Nausea and/or Vomiting Low 01/31/2019 Medications atorvastatin (LIPITOR) 10 MG tablet Take 10 mg by mouth daily. 4 Active betamethasone, augmented, (DIPROLENE AF) 0.05 % cream Apply topically daily. 2 Active clascoterone (WINLEVI) 1 % topical cream Apply topically 2 (two) times a day. 2 Active desogestreL-ethin yl estradioL (APRI) 0.15-0.03 mg per tablet Take 1 tablet by mouth daily. 9 Active guanFACINE (INTUNIV) 3 mg ER tablet Take 3 mg by mouth daily. 3 Active methotrexate sodium 25 mg/mL injection Inject 20 mg under the skin once. 5 Active secukinumab (COSENTYX) 150 mg/mL subcutaneous injection syringe Inject 150 mg under the skin every 28 days. 2 Active TRINTELLIX 5 mg Tab Take 5 mg by mouth daily. 3 Active tacrolimus (PROTOPIC) 0.1 % ointment Apply topically 2 (two) times a day. 2 Active Active Problems Problem Noted Date Diagnosed Date Endometriosis of pelvic peritoneum 04/06/2025 Encounters Date Type Department Care Team Description 04/06/2025 2:00 PM EDT Office Visit [facility] Center for Infertility & Reproductive Surgery [address] [place] [address] Chinmay Cheema MD Endometriosis of pelvic peritoneum (Primary Dx); Pelvic pain 04/02/2025 Documentation [facility] [address] [place] [address] Chinmay Cheema MD 03/25/2025 Telephone [facility] [address] [place] [address] Bharath Ferrell MA from Last 3 Months Social History Tobacco Use Types Packs/Day Years Used Date Smoking Tobacco: Never Smokeless Tobacco: Never Alcohol Use Standard Drinks/Week Comments Yes 0 (1 standard drink = 0.6 oz pur e alcohol) Education Answer Date Recorded Are you interested in more education? Not on tiffani e 03/25/2025 Are you concerned about learning? Not on file 03/25/2025 No 03/25/2025 No 03/25/2025 Digital Access Answer Date Recorded No 03/25/2025 No 03/25/2025 Reliable internet access at home? Not on file 03/25/2025 Device with a working camera? Not on file 07 /06/2025 Comments Unknown Sex and Gender Information Value Date Recorded Sex Assigned at Female 03/11/2025 12:15 PM EDT Legal Sex Female 12:08 PM EDT Gender Identity Female 03/11/2025 12:15 PM EDT Sexual Orientation Bisexual 03/11/2025 12 :16 PM EDT Last Filed Vital Signs Vital Sign Reading Time Taken Comments Blood Pressure 118/58 04/06/2025 1:38 PM EDT Pulse 59 04/06/2025 1:38 PM EDT Temperature - - Respiratory Rate - - Oxygen Saturation - - Inhaled Oxygen Concentration - - Weight 66.7 kg (147 lb) 04/06/2025 1:38 PM EDT Height 154.3 cm (5' 0.75 ) 04/06/2025 1:38 PM ED T Body Mass Index 28.01 04/06/2025 1:38 PM EDT Plan of Treatment Upcoming Encounters Date Type Department Care Team ([facility] st Contact Info) Description 07/06/2025 1:00 PM EDT Follow-Up [facility] Center for Infertility & Reproductive Surgery [address] [place], [place] [address]21[address] [place] [address] Chinmay Cheema MD [address] [place] [address] Infertility [place] [address] [email or web address] Health Maintenance Due Date Last Done Comments Adult Td,Tdap Booster 1987 DEPRESSION SCREENING 1999 HEPATITIS C SCREENING 2005 HIV ONE-TIME SCREENING (18-6 5 YEARS) 2005 PNEUMOCOCCAL VACCINES (0-49 years) (1 of 2 - PCV) 2006 PAP SMEAR 2008 SCREENING FOR DIABETES 2022 COVID-19 VACCINE (2 - Pfizer risk series) 07/05/2023 06/14/2023 SMOKING STATUS SCREENING (On ce After 26 Yrs) Completed 04/06/2025 HEPATITIS A VACCINES Aged Out No long er eligible based on patient's age to complete this topic HIB VACCINES Aged Out No longer eligi ble based on patient's age to complete this topic MENINGOCOCCAL VACCINES (ACWY) Aged Out No longer eligible based on patient's age to complete this topic MENINGOCOCCAL VACCINES (B) Aged Out N o longer eligible based on patient's age to complete this topic Medical Devices Not on file Insurance [facility] POS [facility] POS [facility] POS Care Teams Floor Layer Relationship Specialty Start Date End Date Kalani Valdes NP [address] [place] [address] JOJO MOLINA [address] PCP - General Nurse Practitioner 03/11/25 Additional Source Comments The information contained in this document represents components of the legal health record. It is not the complete legal health record.[facility]
== END 2025-05-03 09:32 | disposition home or self-care (01) ==
LOC: HO.HMGAL 08:55
PROVIDERS: PCP Nurse Practitioner Family; Visit Provider Registered Nurse Emergency
DX: J30.89 Other allergic rhinitis (principal)
CPT/HCPCS: 95117; 95165

== ENCOUNTER 2025-05-10 09:05 | Outpatient (AMB) | payer OTHER, SELFPAY ==
--- OUTSIDE RECORDS SUMMARY | 2025-05-10 09:45 | XMS_ITS | Clinical Summary ---
Author Organization [facility] Address [address] [place] [address] Phone Care Team Providers Care Director Of Teacher Education Name Role Phone Unavailable Primary Care Provider [...] patient's age to complete this topic Insurance [facility]
--- OUTSIDE RECORDS SUMMARY | 2025-05-10 09:45 | XMS_ITS | Patient Health Record ---
Author Organization [facility] Address [address] [facility] [address] SH[place] Johns [phone] Care Team Providers Care Rafter Cutting Machine Operator Name Role Phone Anthony Najera Primary Care Provider Allergies Allergen (clinical drug ingredient) Drug/Non Drug Allergy documented on EMR Reaction Allergy Type Onset Date Status amoxicillin Amoxicillin Unknown Drug Allergy Act girish erythromycin Erythromycin Unknown Drug Allergy A ctive Reason For Referral No Information Medications Medication SIG (Take, Route, Frequency, Duration) Notes Start Date End Date Status J-Nyhjxv-H-Cysteine OTC Active L-Tyrosine 500 MG 1 capsule [...] Coverage End Date [employer] PPO [address] [place] [address] [id number] Jessa Newton Self - patient is the insured 2018 Medical (General) History Medical History History ICD Code gerd depression trichotillomania scoliosis eczema periodontal endometriosis celiac (undiagnosed) asthma lactose intolerance migrains broken bone left and right hand Surgical History Surgery Date(Month/Year) Hospitalization History Reason Date(Month/Year) ear infecton 09/01/19
--- OUTSIDE RECORDS SUMMARY | 2025-05-10 09:46 | XMS_ITS | Clinical Summary ---
Author Organization [facility] Address [address] [address] Phone Care Team Providers Care Youth Care Professional Name Role Phone Kalani Valdes PRACTICAL MINISTRIES PROFESSOR Primary Care Provider +1- [phone] Allergies Active Allergy Reactions Criticality Noted Date [...] Description 04/06/2025 2:00 PM EDT Office Visit [facility] Center for Infertility & Reproductive Surgery [address] [place] [address] Chinmay Cheema MD Endometriosis of pelvic peritoneum (Primary Dx); Pelvic pain 04/02/2025 Documentation [facility] for [facility] [address] [place] [address] Chinmay Cheema MD 03/25/2025 Telephone [facility] [address] [place] [phone] Bharath Ferrell MA from Last 3 Months [...] Upcoming Encounters Date Type Department Care Team ([facility] st Contact Info) Description 07/06/2025 1:00 PM EDT Follow-Up [facility] Center for Infertility & Reproductive Surgery [address] [place], [place] [address] [place] [address] Chinmay Cheema MD [address] [place] [address] Infertility and [place] [address] [email or web address] Health Maintenance Due Date Last Done Comments [...] topic Medical Devices Not on file Insurance [facility] POS [facility] POS [facility] POS [facility] POS [facility] POS [facility] POS Care Teams Youth Care Professional Relationship Specialty Start Date End Date Kalani Valdes NP [address] [place] [address] JOJO MOLINA [address] PCP - General Nurse Practitioner 03/11/25 Additional Source Comments The information contained in this document represents components of the legal health record. It is not the complete legal health record.[facility]
== END 2025-05-10 12:56 | disposition home or self-care (01) ==
LOC: HO.HMGAL 09:05
PROVIDERS: PCP Nurse Practitioner Family; Visit Provider Registered Nurse Emergency
DX: J30.89 Other allergic rhinitis (principal)
CPT/HCPCS: 95117; 95165

== ENCOUNTER 2025-05-26 08:54 | Outpatient (AMB) | payer OTHER, SELFPAY ==
--- OUTSIDE RECORDS SUMMARY | 2025-05-26 10:28 | XMS_ITS | Clinical Summary ---
Author Organization [address] [facility] Address [address] [place] [address] Phone Care Team Providers Care Neurology Specialist Name Role Phone Unavailable Primary Care [...] Cervical Cancer Screening: P ap Smear 2008 Depression Screening 09/16/2024 HIV Screening 10/15/2024 Hepatitis C Screening 10/15/2024 Social Influencers of Health Screening 10/15/2024 COVID-19 Vaccine (2023-2 5 season) 2025 Influenza Vaccine (#1) 2025 HIB Vaccines Aged [...] patient's age to complete this topic Insurance [facility]
--- OUTSIDE RECORDS SUMMARY | 2025-05-26 10:28 | XMS_ITS | Clinical Summary ---
Author Organization [facility] Address [address] [address] Phone Care Team Providers Care Second Chef Name Role Phone Kalani Valdes [employer] Primary Care Provider +1- [phone] Allergies Active Allergy Reactions Criticality Noted Date [...] Description 04/06/2025 2:00 PM EDT Office Visit [facility] Center for Infertility & Reproductive Surgery [address] [place] [address] Chinmay Cheema MD Endometriosis of pelvic peritoneum (Primary Dx); Pelvic pain 04/02/2025 Documentation [facility] for [facility] Reproductive Surgery [address] [place] [address] Chinmay Cheema MD 03/25/2025 Telephone [facility]ductive Surgery [address] [place] [address] Bharath Ferrell MA from Last 3 Months [...] Upcoming Encounters Date Type Department Care Team ([facility] st Contact Info) Description 07/06/2025 1:00 PM EDT Follow-Up [facility] Center for Infertility & Reproductive Surgery [address] [place], [place] [address] [place] [address] Chinmay Cheema MD [address] [place] [address] Infertility [place] [address] [email or web address] Health Maintenance Due Date Last Done Comments Adult Td,Tdap Booster 1987 DEPRESSION SCREENING 1999 HEPATITIS C SCREENING 2005 HIV ONE-TIME SCREENING (18-6 5 YEARS) 2005 PNEUMOCOCCAL VACCINES (0-49 years) (1 of 2 - PCV) 2006 PAP SMEAR 2008 SCREENING FOR DIABETES 2022 COVID-19 VACCINE (2 - Pfizer risk series) 07/05/2023 06/14/2023 INFLUENZA VACCINE (#1) 2025 , 06/28/2023, 06/16/2021 SMOKING STATUS SCREENING (On ce After 26 [...] topic Medical Devices Not on file Insurance [facility] POS [facility] POS [facility] POS [facility] POS [facility] POS [facility] POS Care Teams Second Chef Relationship Specialty Start Date End Date Kalani Valdes NP [address] [place] [address] PCP - General Nurse Practitioner 03/11/25 Additional Source Comments The information contained in this document represents components of the legal health record. It is not the complete legal health record.[facility]
--- OUTSIDE RECORDS SUMMARY | 2025-05-26 10:28 | XMS_ITS | Patient Health Record ---
Author Organization [facility] Billing Info Address [address] [place] [address] [place] [address] Care Team Providers Care Medical Equipment Repair Technician Name Role Phone BISHOP LAMB Primary Care Provider Unavailabl e Reason For Referral No Information Plan Of Treatment No Information Insurance Providers Payer Name Payer Address Payer Phone Subscriber Number Group Number Insured Name Patient Relationship to Insured Coverage Start Date Coverage End Date [employer] PPO/188 061 [address] [place], [place] [id number] Jessa Dc Self - patient is the insured 8 8
--- OUTSIDE RECORDS SUMMARY | 2025-05-26 10:28 | XMS_ITS | Encounter Summary ---
Author Organization [facility] Address [address] [place] [address] Care Team Providers Care Repair Tech Name Role Phone Unavailable Primary Care Provider Unavailabl e Encounter Details Date Type Department Care Team (Late st Contact Info) Description 10/15/2024 Lab Requisition [facility] - Main Lab [address] [facility] [place] [address] Jeronimo Hyde MD [address] [place] [address] Calculus of kidney Social History Tobacco Use [...] developed and its performance characteristics determined by [facility] in a manner consistent with CLIA requirements. This test has not been cleared or approved by the U.S. Food and Drug Administration. Test performed at [facility], [address], [place] [address] Gabrielle aCmpbell MD, PhD - Culinary Assistant Calculus 10/14/2024 10/15/2024 1:1 1 PM EST us Jeronimo Hyde MD LAB BODY FLUIDS AND STOO LS ORDERABLES Final Result [facility] [address] [place] [address] documented in this encounter Visit Diagnoses Diagnosis Calculus of kidney documented in this encounter
--- OUTSIDE RECORDS SUMMARY | 2025-05-26 10:28 | XMS_ITS | Patient Health Record ---
Author Organization [facility] Address [address] [facility] [address] [place] Johns [phone] Care Team Providers Care Field Marketing Representative Name Role Phone Anthony Najera Primary Care Provider Allergies Allergen (clinical drug ingredient) Drug/Non Drug Allergy documented on EMR Reaction Allergy Type Onset Date Status amoxicillin Amoxicillin Unknown Drug Allergy Act girish erythromycin Erythromycin Unknown Drug Allergy A ctive Reason For Referral No Information Medications Medication SIG (Take, Route, Frequency, Duration) Notes Start Date End Date Status X-Hgfjel-C-Cysteine OTC Active L-Tyrosine 500 MG 1 capsule [...] Coverage End Date [employer] PPO [address] [place] [address] [id number] Jessa Newton Self - patient is the insured 2018 Medical (General) History Medical History History ICD Code gerd depression trichotillomania scoliosis eczema periodontal endometriosis celiac (undiagnosed) asthma lactose intolerance migrains broken bone left and right hand Surgical History Surgery Date(Month/Year) Hospitalization History Reason Date(Month/Year) ear infecton 09/01/19
== END 2025-05-26 09:04 | disposition home or self-care (01) ==
LOC: HO.HMGAL 08:54
PROVIDERS: PCP Nurse Practitioner Family; Visit Provider Registered Nurse Emergency
DX: J30.89 Other allergic rhinitis (principal)
CPT/HCPCS: 95117; 95165

== ENCOUNTER 2025-06-02 09:05 | Outpatient (AMB) | payer OTHER, SELFPAY ==
--- OUTSIDE RECORDS SUMMARY | 2025-06-02 10:40 | XMS_ITS | Encounter Summary ---
Author Organization [facility] Address [address] [place] [address] Care Team Providers Care Buyer Grain Name Role Phone Unavailable Primary Care Provider Unavailabl e Encounter Details Date Type Department Care Team (Late st Contact Info) Description 10/15/2024 Lab Requisition [facility] - Main Lab [address] [facility] [place] [address] Jeronimo Hyde MD [address] [place] [address] Calculus of kidney Social History [...] developed and its performance characteristics determined by [facility] in a manner consistent with CLIA requirements. This test has not been cleared or approved by the U.S. Food and Drug Administration. Test performed at [facility], [address], [place] [address] Gabrielle Campbell MD, PhD - Rubber Flap Cutter Calculus 10/14/2024 10/15/2024 1:1 1 PM EST us Jeronimo Hyde MD LAB BODY FLUIDS AND STOO LS ORDERABLES Final Result [facility] [address] [place] [address] documented in this encounter Visit Diagnoses Diagnosis Calculus of kidney documented in this encounter
--- OUTSIDE RECORDS SUMMARY | 2025-06-02 10:40 | XMS_ITS | Clinical Summary ---
Author Organization [facility] Address [address] [address] Phone Care Team Providers Care Senior Hadoop Developer Name Role Phone Kalani Valdes MRI SPECIAL PROCEDURES TECHNOLOGIST Primary Care Provider +1- [phone] Allergies Active Allergy Reactions Criticality Noted Date [...] Description 04/06/2025 2:00 PM EDT Office Visit [facility] Center for Infertility & Reproductive Surgery [address] [place] [address] Chinmay Cheema MD Endometriosis of pelvic peritoneum (Primary Dx); Pelvic pain 04/02/[address] [facility] for Infertility & Reproductive Surgery [address] [place] [address] Chinmay Cheema MD 03/25/[address] [facility] for Infertility & Reproductive Surgery [address] [place] [address] Bharath Ferrell MA from Last 3 Months [...] Upcoming Encounters Date Type Department Care Team ([facility] st Contact Info) Description 07/06/2025 1:00 PM EDT Follow-Up [facility] Center for Infertility & Reproductive Surgery [address] [place], [place] [address] [place] [address] Chinmay Cheema MD [address] [place] [address] Infertility [place] [address] [email or web address] Health Maintenance Due Date Last Done Comments [...] topic Medical Devices Not on file Insurance [facility] POS Care Teams Senior Hadoop Developer Relationship Specialty Start Date End Date Kalani Valdes NP [address] [place] [address] PCP - General Nurse Practitioner 03/11/25 Additional Source Comments The information contained in this document represents components of the legal health record. It is not the complete legal health record.[facility]
--- OUTSIDE RECORDS SUMMARY | 2025-06-02 10:40 | XMS_ITS | Patient Health Record ---
Author Organization [facility] Billing Info Address [address] [place] [address] [place] [address] Care Team Providers Care Tuberculosis Specialist Name Role Phone BISHOP LAMB Primary Care Provider Unavailabl e Reason For Referral No Information Plan Of Treatment No Information Insurance Providers Payer Name Payer Address Payer Phone Subscriber Number Group Number Insured Name Patient Relationship to Insured Coverage Start Date Coverage End Date [employer] PPO/188 061 [address] [place], [place] [id number] Jessa Dc Self - patient is the insured 8 8
--- OUTSIDE RECORDS SUMMARY | 2025-06-02 10:40 | XMS_ITS | Patient Health Record ---
Author Organization [facility] Address [address] [facility] [address] [place] Johns [phone] Care Team Providers Care Cotton Ginner Name Role Phone Anthony Najera Primary Care Provider Allergies Allergen (clinical drug ingredient) Drug/Non Drug Allergy documented on EMR Reaction Allergy Type Onset Date Status amoxicillin Amoxicillin Unknown Drug Allergy Act girish erythromycin Erythromycin Unknown Drug Allergy A ctive Reason For Referral No Information Medications Medication SIG (Take, Route, Frequency, Duration) Notes Start Date End Date Status R-Eppuil-S-Cysteine OTC Active L-Tyrosine 500 MG 1 capsule [...] Coverage End Date [employer] PPO [address] [place] [id number] Jessa Newton Self - patient is the insured 2018 Medical (General) History Medical History History ICD Code gerd depression trichotillomania scoliosis eczema periodontal endometriosis celiac (undiagnosed) asthma lactose intolerance migrains broken bone left and right hand Surgical History Surgery Date(Month/Year) Hospitalization History Reason Date(Month/Year) ear infecton 09/01/19
--- OUTSIDE RECORDS SUMMARY | 2025-06-02 10:40 | XMS_ITS | Clinical Summary ---
Author Organization [address] [facility] Address [address] [place] [address] Phone Care Team Providers Care Equipment Maintenance Supervisor Name Role Phone Unavailable Primary Care Provider [...] patient's age to complete this topic Insurance [facility]
== END 2025-06-02 09:05 | disposition home or self-care (01) ==
LOC: HO.HMGAL 09:05
PROVIDERS: PCP Nurse Practitioner Family; Visit Provider Registered Nurse Emergency
DX: J30.89 Other allergic rhinitis (principal)
CPT/HCPCS: 95117; 95165

== ENCOUNTER 2025-06-07 09:07 | Outpatient (AMB) | payer OTHER, SELFPAY ==
--- OUTSIDE RECORDS SUMMARY | 2025-06-07 10:41 | XMS_ITS | Clinical Summary ---
Author Organization [address] [facility] Address [address] [place] [address] Phone Care Team Providers Care School Adjustment Counselor Name Role Phone Unavailable Primary Care Provider [...]
--- OUTSIDE RECORDS SUMMARY | 2025-06-07 10:42 | XMS_ITS | Patient Health Record ---
Author Organization [facility] Address [address] [facility] [address] [place] Johns [phone] Care Team Providers Care Supervisor Warping Department Name Role Phone Anthony Najera Primary Care Provider [phone] Allergies Allergen (clinical drug ingredient) Drug/Non Drug Allergy documented on EMR Reaction Allergy Type Onset Date Status amoxicillin Amoxicillin Unknown Drug Allergy Act girish erythromycin Erythromycin Unknown Drug Allergy A ctive Reason For Referral No Information Medications Medication SIG (Take, Route, Frequency, Duration) Notes Start Date End Date Status O-Huvxnx-K-Cysteine OTC Active L-Tyrosine 500 MG 1 capsule [...] Coverage End Date [employer] PPO [address] [place] [id number] Jessa Newton Self - patient is the insured 2018 Medical (General) History Medical History History ICD Code gerd depression trichotillomania scoliosis eczema periodontal endometriosis celiac (undiagnosed) asthma lactose intolerance migrains broken bone left and right hand Surgical History Surgery Date(Month/Year) Hospitalization History Reason Date(Month/Year) ear infecton 09/01/19
--- OUTSIDE RECORDS SUMMARY | 2025-06-07 10:42 | XMS_ITS | Encounter Summary ---
Author Organization [facility] Address [address] [place] [address] Care Team Providers Care Press Washer Name Role Phone Unavailable Primary Care Provider Unavailabl e Encounter Details Date Type Department Care Team (Late st Contact Info) Description 10/15/2024 Lab Requisition [facility] - Main Lab [address] [facility] [place] [address] Jeronimo Hyde MD [address] [place] [address] Calculus of kidney Social History [...] developed and its performance characteristics determined by [facility] in a manner consistent with CLIA requirements. This test has not been cleared or approved by the U.S. Food and Drug Administration. Test performed at [facility], [address], [place] [address] Gabrielle Campbell MD, PhD - Slab Grinder Calculus 10/14/2024 10/15/2024 1:1 1 PM EST us Jeronimo Hyde MD LAB BODY FLUIDS AND STOO LS ORDERABLES Final Result [facility] [address] [place] [address] documented in this encounter Visit Diagnoses Diagnosis Calculus of kidney documented in this encounter
--- OUTSIDE RECORDS SUMMARY | 2025-06-07 10:42 | XMS_ITS | Clinical Summary ---
Author Organization [facility] Address [address] [address] Phone Care Team Providers Care Lard Refiner Name Role Phone Kalani Valdes OVEN DRIER TENDER Primary Care Provider +1- [phone] Allergies Active Allergy Reactions Criticality Noted Date [...] Description 04/06/2025 2:00 PM EDT Office Visit [facility] [address] [place] [address] Chinmay Cheema MD Endometriosis of pelvic peritoneum (Primary Dx); Pelvic pain 04/02/2025 Documentation [facility] [address] [place] [address] Chinmay Cheema MD 03/25/2025 Telephone [facility] [address] [place] [address] Bharath Ferrell MA from Last 3 Months [...] Upcoming Encounters Date Type Department Care Team ([facility] st Contact Info) Description 07/06/2025 1:00 PM EDT Follow-Up [facility] [address] [place], [place] [address]3 [place] [address] Chinmay Cheema MD [address] [place] [address] Infertility [place] [address] [email or web address] Health Maintenance Due [...] topic Medical Devices Not on file Insurance [facility] POS Care Teams Lard Refiner Relationship Specialty Start Date End Date Kalani Valdes NP [address] [place] [address] PCP - General Nurse Practitioner 03/11/25 Additional Source Comments The information contained in this document represents components of the legal health record. It is not the complete legal health record.[facility]
--- OUTSIDE RECORDS SUMMARY | 2025-06-07 10:42 | XMS_ITS | Patient Health Record ---
Author Organization [facility] Billing Info Address [address] [place] [address] [place] [address] Care Team Providers Care Credit Collections Analyst Name Role Phone BISHOP LAMB Primary Care Provider Unavailabl e Reason For Referral No Information Plan Of Treatment No Information Insurance Providers Payer Name Payer Address Payer Phone Subscriber Number Group Number Insured Name Patient Relationship to Insured Coverage Start Date Coverage End Date [employer] PPO/188 [id number] [address] [place], [place] [id number] [phone] [id number] Jessa Dc Self - patient is the insured 8 8
== END 2025-06-07 09:09 | disposition home or self-care (01) ==
LOC: HO.HMGAL 09:08
PROVIDERS: PCP Nurse Practitioner Family; Visit Provider Registered Nurse Emergency
DX: J30.89 Other allergic rhinitis (principal)
CPT/HCPCS: 95117; 95165

== ENCOUNTER 2025-06-21 09:43 | Outpatient (AMB) | payer OTHER, SELFPAY ==
--- OUTSIDE RECORDS SUMMARY | 2025-06-21 11:09 | XMS_ITS | Clinical Summary ---
Author Organization [facility] Address [address] [address] Phone Care Team Providers Care Musical Instrument Maker Or Repairer Name Role Phone Kalani Valdes CAFETERIA MONITOR Primary Care Provider +1- [phone] Allergies Active Allergy Reactions Criticality Noted Date [...] Description 04/06/2025 2:00 PM EDT Office Visit [facility] [address] [place] [address] Chinmay Cheema MD Endometriosis of pelvic peritoneum (Primary Dx); Pelvic pain 04/02/2025 Documentation [facility] [address] [place] [address] Chinmay Cheema MD 03/25/2025 Telephone [facility] [address] [place] [address] Bharath Ferrell MA from Last 3 Months [...] Upcoming Encounters Date Type Department Care Team ([facility] st Contact Info) Description 07/06/2025 1:00 PM EDT Follow-Up [facility] Surgery [address] [place], [place] [address] [place] [address] Chinmay Cheema MD [address] [place] [address] Infertility [place] [address] [email or web address] Health Maintenance Due Date Last Done Comments [...] Devices Not on file Insurance [facility] Care Teams Musical Instrument Maker Or Repairer Relationship Specialty Start Date End Date Kalani Valdes NP [address] [place] [address] PCP - General Nurse Practitioner 03/11/25 Additional Source Comments The information contained in this document represents components of the legal health record. It is not the complete legal health record.[facility]
--- OUTSIDE RECORDS SUMMARY | 2025-06-21 11:09 | XMS_ITS | Clinical Summary ---
Author Organization 299 [facility] Address [address] [place] [address] Phone Care Team Providers Care English Language Arts Teacher Name Role Phone Unavailable Primary Care Provider [...] Cervical Cancer Screening: P ap Smear 2008 HPV Vaccines (1 - 3-dose SCD M series) 2014 Depression Screening 09/16/2024 HIV Screening 10/15/2024 Hepatitis C Screening 10/15/2024 Social Influencers of Health Screening 10/15/2024 COVID-19 Vaccine (1 - 2023-2 5 season) 2025 Influenza Vaccine (#1) 2025 RSV Immunization Adult Patie nts (1 - 1-dose 75+ series) 2062 HIB Vaccines Aged Out No longer eligi [...] patient's age to complete this topic Insurance [facility] [place] [address] [facility]
--- OUTSIDE RECORDS SUMMARY | 2025-06-21 11:09 | XMS_ITS | Encounter Summary ---
Author Organization [facility] Address [address] [place] [address] Care Team Providers Care Center Hole Reamer Name Role Phone Unavailable Primary Care Provider Unavailabl e Encounter Details Date Type Department Care Team (Late st Contact Info) Description 10/15/2024 Lab Requisition [facility] - Main Lab [address] [facility] [place] [address] Jeronimo Hyde MD [address] [place] [address] Calculus of kidney Social History [...] developed and its performance characteristics determined by [facility] in a manner consistent with CLIA requirements. This test has not been cleared or approved by the U.S. Food and Drug Administration. Test performed at [facility], [address], [place] [address] Gabrielle Campbell MD, PhD - Jewel Bearing Broacher Calculus 10/14/2024 10/15/2024 1:1 1 PM EST us Jeronimo Hyde MD LAB BODY FLUIDS AND STOO LS ORDERABLES Final Result [facility] [address] [place] [address] documented in this encounter Visit Diagnoses Diagnosis Calculus of kidney documented in this encounter
--- OUTSIDE RECORDS SUMMARY | 2025-06-21 11:09 | XMS_ITS | Patient Health Record ---
Author Organization [facility] Billing Info Address [address] [place] [address] [place] [address] Care Team Providers Care Burn Crew Member Name Role Phone BISHOP LAMB Primary Care Provider Unavailabl e Reason For Referral No Information Plan Of Treatment No Information Insurance Providers Payer Name Payer Address Payer Phone Subscriber Number Group Number Insured Name Patient Relationship to Insured Coverage Start Date Coverage End Date [employer] PPO/188 [id number] [address] [place], [place] [id number] Jessa Dc Self - patient is the insured 8 8
--- OUTSIDE RECORDS SUMMARY | 2025-06-21 11:09 | XMS_ITS | Patient Health Record ---
Author Organization [facility] Address [address] [facility] [address] [place] [id number] Care Team Providers Care Chemist Water Purification Name Role Phone Anthony Najera Primary Care Provider Allergies Allergen (clinical drug ingredient) Drug/Non Drug Allergy documented on EMR Reaction Allergy Type Onset Date Status amoxicillin Amoxicillin Unknown Drug Allergy Act girish erythromycin Erythromycin Unknown Drug Allergy A ctive Reason For Referral No Information Medications Medication SIG (Take, Route, Frequency, Duration) Notes Start Date End Date Status N-Yrsbho-H-Cysteine OTC Active L-Tyrosine 500 MG 1 capsule [...] Coverage End Date CIG[employer] PPO [address] [place] [address] [id number] Jessa Newton Self - patient is the insured 2018 Medical (General) History Medical History History ICD Code gerd depression trichotillomania scoliosis eczema periodontal endometriosis celiac (undiagnosed) asthma lactose intolerance migrains broken bone left and right hand Surgical History Surgery Date(Month/Year) Hospitalization History Reason Date(Month/Year) ear infecton 09/01/19
== END 2025-06-21 09:47 | disposition home or self-care (01) ==
LOC: HO.HMGAL 09:43
PROVIDERS: PCP Nurse Practitioner Family; Visit Provider Registered Nurse Emergency
DX: J30.89 Other allergic rhinitis (principal)
CPT/HCPCS: 95117; 95165

== ENCOUNTER 2025-06-30 09:07 | Outpatient (AMB) | payer OTHER, SELFPAY ==
--- OUTSIDE RECORDS SUMMARY | 2025-06-30 09:59 | XMS_ITS | Patient Health Record ---
Author Organization [facility] Address [address] [facility] [address] [place] [id number] Care Team Providers Care Rehabilitation Caseworker Name Role Phone Anthony Najera Primary Care Provider Allergies Allergen (clinical drug ingredient) Drug/Non Drug Allergy documented on EMR Reaction Allergy Type Onset Date Status amoxicillin Amoxicillin Unknown Drug Allergy Act girish erythromycin Erythromycin Unknown Drug Allergy A ctive Reason For Referral No Information Medications Medication SIG (Take, Route, Frequency, Duration) Notes Start Date End Date Status A-Pbonwn-I-Cysteine OTC Active L-Tyrosine 500 MG 1 capsule [...] Coverage End Date C[employer] PPO [address] [place] [address] [id number] Jessa Newton Self - patient is the insured 2018 Medical (General) History Medical History History ICD Code gerd depression trichotillomania scoliosis eczema periodontal endometriosis celiac (undiagnosed) asthma lactose intolerance migrains broken bone left and right hand Surgical History Surgery Date(Month/Year) Hospitalization History Reason Date(Month/Year) ear infecton 09/01/19
--- OUTSIDE RECORDS SUMMARY | 2025-06-30 09:59 | XMS_ITS | Clinical Summary ---
Author Organization 299 [facility] Address [address] [place] [address] Phone Care Team Providers Care Home Inspector Name Role Phone Unavailable Primary Care Provider [...] age to complete this [place] [address] [facility]
--- OUTSIDE RECORDS SUMMARY | 2025-06-30 09:59 | XMS_ITS | Encounter Summary ---
Author Organization [facility] Address [address] [place] [address] Care Team Providers Care Reading Specialist Name Role Phone Unavailable Primary Care Provider Unavailabl e Encounter Details Date Type Department Care Team (Late st Contact Info) Description 10/15/2024 Lab Requisition [facility] - Main Lab [address] [facility] [place] [address] Jeronimo Hyde MD [address] [place] [address] Calculus of kidney Social History [...] at [facility], [address], [place] [address] Gabrielle Campbell MD, PhD - Azure Developer Calculus 10/14/2024 10/15/2024 1:1 1 PM EST us Jeronimo Hyde MD LAB BODY FLUIDS AND STOO LS ORDERABLES Final Result [facility] [address] [place] [address] documented in this encounter Visit Diagnoses Diagnosis Calculus of kidney documented in this encounter
--- OUTSIDE RECORDS SUMMARY | 2025-06-30 10:00 | XMS_ITS | Clinical Summary ---
Author Organization [facility] Address [address] [address] Phone Care Team Providers Care Slitter Cut Off Operator Name Role Phone Kalani Valdes TELETYPEWRITER INSTALLER Primary Care Provider +1- [phone] Allergies Active Allergy Reactions Criticality Noted Date [...] Description 04/06/2025 2:00 PM EDT Office Visit [facility] [address] [place] [address] Chinmay Cheema MD Endometriosis of pelvic peritoneum (Primary Dx); Pelvic pain 04/02/2025 Documentation [facility] [address] [place] [address] Chinmay Cheema MD from Last 3 Months Social History Tobacco [...] with a working camera? Not on file Comments Unknown Sex and Gender Information Value [...] Upcoming Encounters Date Type Department Care Team ([facility] st Contact Info) Description 07/06/2025 1:00 PM EDT Follow-Up [facility] [address] [place] [address] ASB[address] [place] [address] Chinmay Cheema MD [address] [place] [address] Infertility [place] [address] [email or web address] Health Maintenance Due Date Last Done Comments Adult Td,Tdap Booster 1987 DEPRESSION SCREENING 1999 HEPATITIS C SCREENING 2005 HIV ONE-TIME SCREENING (18-6 5 YEARS) 2005 PNEUMOCOCCAL VACCINES (0-49 years) (1 of 2 - PCV) 2006 PAP SMEAR 2008 SCREENING FOR DIABETES 2022 COVID-19 VACCINE (2 - Pfizer risk series) 07/05/2023 06/14/2023 INFLUENZA VACCINE (#1) 2025 4, 06/28/2023, 06/16/2021 SMOKING STATUS SCREENING (On ce [...] topic Medical Devices Not on file Insurance [place] [facility] [place] [facility] [place] [facility] [place] [facility] [place] [facility] Care Teams Slitter Cut Off Operator Relationship Specialty Start Date End Date Kalani Valdes NP [address] [facility] [place] [address] PCP - General Nurse Practitioner 03/11/25 Additional Source Comments The information contained in this document represents components of the legal health record. It is not the complete legal health record.[facility]
--- OUTSIDE RECORDS SUMMARY | 2025-06-30 10:00 | XMS_ITS | Patient Health Record ---
Author Organization [facility] Billing Info Address [address] [place] [address] [place] [address] Care Team Providers Care Suggestion Clerk Name Role Phone BISHOP LAMB Primary Care Provider Unavailabl e Reason For Referral No Information Plan Of Treatment No Information Insurance Providers Payer Name Payer Address Payer Phone Subscriber Number Group Number Insured Name Patient Relationship to Insured Coverage Start Date Coverage End Date [employer] PPO/188 061 [address] [place], [place] [id number] [phone] [id number] Jessa Dc Self - patient is the insured 8 8
== END 2025-06-30 09:09 | disposition home or self-care (01) ==
LOC: HO.HMGAL 09:07
PROVIDERS: PCP Nurse Practitioner Family; Visit Provider Registered Nurse Emergency
DX: J30.89 Other allergic rhinitis (principal)
CPT/HCPCS: 95117; 95165

== ENCOUNTER 2025-07-05 08:32 | Outpatient (REF) | payer OTHER, SELFPAY ==
--- OUTSIDE RECORDS SUMMARY | 2025-07-05 09:05 | XMS_ITS | Clinical Summary ---
Author Organization 299 [facility] Address [address] [place] [address] Phone Care Team Providers Care Environmental Studies Department Chair Name Role Phone Unavailable Primary Care Provider [...] age to complete this topic [place] [address] [facility]
--- OUTSIDE RECORDS SUMMARY | 2025-07-05 09:05 | XMS_ITS | Patient Health Record ---
Author Organization [facility] Address [address] [facility] [address] [place] [id number] Care Team Providers Care Bit Sharpener Name Role Phone Anthony Najera Primary Care Provider [phone] Allergies Allergen (clinical drug ingredient) Drug/Non Drug Allergy documented on EMR Reaction Allergy Type Onset Date Status amoxicillin Amoxicillin Unknown Drug Allergy Act girish erythromycin Erythromycin Unknown Drug Allergy A ctive Reason For Referral No Information Medications Medication SIG (Take, Route, Frequency, Duration) Notes Start Date End Date Status L-Wulqcv-U-Cysteine OTC Active L-Tyrosine 500 MG 1 capsule [...] Coverage End Date CIGNA PPO [address] [place] [address] [id number] Jessa Newton Self - patient is the insured 2018 Medical (General) History Medical History History ICD Code gerd depression trichotillomania scoliosis eczema periodontal endometriosis celiac (undiagnosed) asthma lactose intolerance migrains broken bone left and right hand Surgical History Surgery Date(Month/Year) Hospitalization History Reason Date(Month/Year) ear infecton 09/01/19
--- OUTSIDE RECORDS SUMMARY | 2025-07-05 09:05 | XMS_ITS | Patient Health Record ---
Author Organization [facility] Billing Info Address [address] [place] [address] [place] [address] Care Team Providers Care Operations Logistics Analyst Name Role Phone BISHOP LAMB Primary Care Provider Unavailabl e Reason For Referral No Information Plan Of Treatment No Information Insurance Providers Payer Name Payer Address Payer Phone Subscriber Number Group Number Insured Name Patient Relationship to Insured Coverage Start Date Coverage End Date [employer] PPO/188 061 [address] [place], [place] [id number] Jessa Dc Self - patient is the insured 8 8
--- OUTSIDE RECORDS SUMMARY | 2025-07-05 09:05 | XMS_ITS | Encounter Summary ---
Author Organization [facility] Address [address] [place] [address] Care Team Providers Care Centrex Radio Operator Name Role Phone Unavailable Primary Care Provider Unavailabl e Encounter Details Date Type Department Care Team (Late st Contact Info) Description 10/15/2024 Lab Requisition [facility] - Main Lab [address] [facility] [place] [address] Jeronimo Hyde MD [address] [place] [address] Calculus of kidney Social History [...] and its performance characteristics determined by [facility] in a manner consistent with CLIA requirements. This test has not been cleared or approved by the U.S. Food and Drug Administration. Test performed at [facility], [address], [place] [address] Gabrielle Campbell MD, PhD - Landing Scaler Calculus 10/14/2024 10/15/2024 1:1 1 PM EST us Jeronimo Hyde MD LAB BODY FLUIDS AND STOO LS ORDERABLES Final Result [facility] [address] [place] [address] documented in this encounter Visit Diagnoses Diagnosis Calculus of kidney documented in this encounter
[2025-07-05 11:10] LABS: MANUAL DIFF FLAG NO
[2025-07-05 11:15] LABS: Hematocrit 40.9 % (37.0-47.0); Hemoglobin 13.1 g/dl (12.0-16.0); Imm Gran Abs Auto 0.03 X10*3/uL (0.00-0.03); Imm Gran Pct Auto 0.3 % (0.0-0.4); Lymphocytes Absolute Auto 2.2 X10*3/uL (1.2-4.9); Mean Corpuscular HGB Conc 32.0 g/dl (31.0-35.0); Mean Corpuscular Hemoglobin 30.6 pg (27.0-33.0); Mean Corpuscular Volume 95.6 fL (80.0-98.0); NRBC Abs Auto 0.000 X10*3/uL (0.0-0.012); NRBC Pct Auto 0.0 /100WBC (0.0-0.2); Platelet Count 406 X10*3/uL (160-400); Red Blood Count 4.28 X10*6/uL (4.20-5.50); White Blood Count 9.8 X10*3/uL (4.8-10.8)
[2025-07-05 12:00] LABS: Alanine Aminotransferase 13 U/L (0-31); Albumin Level 4.4 g/dL (3.5-5.0); Alkaline Phosphatase 101 U/L (39-117); Anion Gap 13 (12-20); Aspartate Amino Transferase 23 U/L (5-31); Blood Urea Nitrogen 13 mg/dL (9-16); Calcium 9.6 mg/dL (8.4-10.2); Carbon Dioxide 25 mmol/L (22-29); Chloride 105 mmol/L (96-108); Cholesterol 196 mg/dL (<200); Estimated Glomerular Filt Rate > 60; HDL Cholesterol 62 mg/dL (>40); Potassium 4.2 mmol/L (3.3-5.1); Sodium 139 mmol/L (135-145); Total Protein 7.5 g/dL (6.5-8.0); Triglycerides 161 mg/dL (<150)
== END 2025-07-05 08:33 | disposition home or self-care (01) ==
LOC: HO.WFDLDS 08:32
PROVIDERS: Visit Provider Nurse Practitioner Family
DX: Z00.00 Encounter for general adult medical examination without abnormal findings (principal); E78.00 Pure hypercholesterolemia, unspecified; Z13.21 Encounter for screening for nutritional disorder
CPT/HCPCS: 36415; 80053; 80061; 82306; 84443; 85025

== ENCOUNTER 2025-07-07 09:34 | Outpatient (AMB) | payer OTHER, SELFPAY ==
--- OUTSIDE RECORDS SUMMARY | 2025-07-06 13:00 | XMS_ITS | Encounter Summary ---
Author Organization [facility] Address [address] [address] Phone Care Team Providers Care Student Success Advisor Name Role Phone Kalani Valdes NP Primary Care Provider +1- [phone] Reason for Visit * Reason Comments Follow Up Visit Encounter Details Date Type Department Care Team (Late st Contact Info) Description 07/06/2025 1:00 PM EDT Follow-Up [facility] [address] [place], [place] [address] [place] [address] Chinmay Cheema MD [address] [place] [address] Infertility [place] [address] [email or web address] Endometriosis of pelvic peritoneum (Primary Dx); Pelvic pain Social History Tobacco Use Types Packs/Day Years Used Date Smoking Tobacco: Never Smokeless Tobacco: Never Tobacco Cessation:Counseling Given: Not Answered Alcohol Use Standard Drinks/Week Comments Yes 0 [...] a working camera? Not on file Comments No Sex and Gender Information Value Date Recorded Sex Assigned at Female 03/11/2025 12:15 PM EDT Legal Sex Female 12:08 PM EDT Gender Identity Female 03/11/2025 12:15 PM EDT Sexual Orientation Bisexual 03/11/2025 12 :16 PM EDT documented as of this encounter Last Filed Vital Signs Vital Sign Reading Time Taken Comments Blood Pressure 119/56 07/06/2025 12:42 PM EDT Pulse 94 07/06/2025 12:42 PM EDT Temperature - - Respiratory Rate - - Oxygen Saturation 95% 07/06/2025 12:42 PM EDT Inhaled Oxygen Concentration - - Weight 67.6 kg (149 lb 1.6 oz) 07/06/2025 12:42 PM EDT Height 154.2 cm (5' 0.71 ) 07/06/2025 12:42 PM E DT Body Mass Index 28.44 07/06/2025 12:42 PM EDT documented in this encounter Progress Notes * Chinmay Cheema MD - 07/06/2025 1:00 PM EDT Subjective: I had the pleasure of seeing Jessa Dc in followup today in the [facility] at [facility] for further evaluation and management of chronicpelvic pain and endometriosis. She is 40 y.o. and is currently utilizing apri-21 hormonal therapy. She reports that she is having no bleeding, and she reports that her pain is a 4-7/10 on a 0/10 painscale. She reports that she has significant issues with severe vaginal dryness and has been unable to have vaginal intercourse with her . She returns for followup at this time. 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 Current Outpatient Medications: atorvastatin (LIPITOR) 10 MG tablet, Take 10 mg by mouth daily., Disp: , Rfl: , Last Dispense: Unknown (patient-reported) betamethasone, augmented, (DIPROLENE AF) 0.05 % cream, Apply topically daily., Disp: , Rfl: , Last Dispense: Unknown (patient-reported) clascoterone (WINLEVI) 1 % topical cream, Apply topically 2 (two) times a day., Disp: , Rfl: , LastDispense: Unknown (patient-reported) desogestreL-ethinyl estradioL (APRI) 0.15-0.03 mg per tablet, Take 1 tablet by mouth daily., Disp: , Rfl: , Last Dispense: Unknown (patient-reported) guanFACINE (INTUNIV) 3 mg ER tablet, Take 3 mg by mouth daily., Disp: , Rfl: , Last Dispense: Unknown (patient-reported) methotrexate sodium 25 mg/mL injection, Inject 20 mg under the skin once., Disp: , Rfl: , Last Dispense: Unknown (patient-reported) methotrexate, PF, (REDITREX) 20 mg/0.8 mL subcutaneous syringe, , Disp: , Rfl: , Last Dispense: Unknown (patient-reported) secukinumab (COSENTYX) 150 mg/mL subcutaneous injection syringe, Inject 150 mg under the skin every28 days., Disp: , Rfl: , Last Dispense: Unknown (patient-reported) tacrolimus (PROTOPIC) 0.1 % ointment, Apply topically 2 (two) times a day., Disp: , Rfl: , Last Dispense: Unknown (patient-reported) TRINTELLIX 5 mg Tab, Take 5 mg by mouth daily., Disp: , Rfl: , Last Dispense: Unknown (patient-reported) Allergies Allergen Reactions Atomoxetine Other (See Comments) Desipramine Other (See Comments) Hydroxychloroquine Diarrhea, GI Upset and Nausea and/or Vomiting Adhesive Itching and Rash Amoxicillin Hives Dextroamphetamine-Amphetamine Fatigue, GI Upset and Nausea and/or Vomiting Erythromycin Nausea and/or Vomiting and Other (See Comments) VOMITING Gluten Diarrhea, GI Upset, Joint Pain, Nausea and/or Vomiting and Other (See Comments) Sulfasalazine Diarrhea, GI Upset and Nausea and/or Vomiting Review of Systems No headaches or blurred vision, no chest pain or shortness of breath, no back pain, no lower abdominal pain, no lower extremity pain or swelling. Objective: Vitals: 07/06/25 1242 BP: 119/56 Pulse: 94 SpO2: 95% Ultrasound at [facility]: Preliminary Report: Normal uterus Normal right ovary which freely slides Normal left ovary which freely slides Uterus slides freely in the posterior cul de sac No evidence of deeply infiltrative endometriosis Assessment & Plan: Jessa Dc is a 40 y.o. year old with chronic pelvic pain and endometriosis. I personally reviewed her pelvic ultrasound and we discussed the fact the there is no evidence of deeply infiltrative endometriosis, adenomyosis, endometriomas or adhesions. 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 She is not doing well. She and I discussed options for further management. We discussed a change tonorethindrone acetate 5mg to suppress endometriosis but possibly improve her vaginal dryness. I reocmmended that she see Dr. Melina Bell to help address her vaginal and vulvar symptoms. We discussed pelvic floor physical therapy to address deep dyspareunia and I shared a list of providers with her. She will change to aygestin 5mg hormonal therapy daily to suppress pelvic pain, bleeding, and endometriosis. We discussed the fact that aygestin [norethidrone acetate] is not an FDA approved contraceptive. She shares that her has had a vasectomy and that she is in a monogamous relationship. She will follow up in 3 months time or sooner if she is having any issues. I personally prepared for, cared for the patient [both face to face and non-face to face] and finalized this in person patient visit which involved education and discussion regarding endometriosis, pelvic pain, vaginal dryness, and options for further management. documented in this encounter Plan of Treatment Upcoming Encounters Date Type Department Care Team (Late st Contact Info) Description 09/27/2025 11:00 AM EST Follow-Up [facility] [address] [place] [address] ASB1-3 [place] [address] Chinmay Cheema MD [address] [place] [address] Infertility [place] [address] [email or web address] documented as of this encounter Visit Diagnoses Diagnosis Endometriosis of pelvic peritoneum- Primary Pelvic pain documented in this encounter Care Teams Student Success Advisor Relationship Specialty Start Date End Date Kalani Valdes NP [address] [place] [address] PCP - General Nurse Practitioner 03/11/25 documented as of this encounter Additional Source Comments The information contained in this document represents components of the legal health record. It is not the complete legal health record.[facility]
--- OUTSIDE RECORDS SUMMARY | 2025-07-07 11:02 | XMS_ITS | Clinical Summary ---
Author Organization [address] [facility] Address [address] [place] [address] Phone Care Team Providers Care Commercial Agent Name Role Phone Unavailable Primary Care Provider [...] complete this topic Insurance [facility] [place] [address] [facility]
--- OUTSIDE RECORDS SUMMARY | 2025-07-07 11:02 | XMS_ITS | Patient Health Record ---
Author Organization [facility] [place] Address [address] [facility] [address] [place] [id number] Care Team Providers Care Director Of Player Personnel Name Role Phone Anthony Najera Primary Care Provider Allergies Allergen (clinical drug ingredient) Drug/Non Drug Allergy documented on EMR Reaction Allergy Type Onset Date Status amoxicillin Amoxicillin Unknown Drug Allergy Act girish erythromycin Erythromycin Unknown Drug Allergy A ctive Reason For Referral No Information Medications Medication SIG (Take, Route, Frequency, Duration) Notes Start Date End Date Status Q-Mdgyth-H-Cysteine OTC Active L-Tyrosine 500 MG 1 capsule [...] Coverage End Date [employer] PPO [address] [place] [address] [id number] Jessa Newton Self - patient is the insured 2018 Medical (General) History Medical History History ICD Code gerd depression trichotillomania scoliosis eczema periodontal endometriosis celiac (undiagnosed) asthma lactose intolerance migrains broken bone left and right hand Surgical History Surgery Date(Month/Year) Hospitalization History Reason Date(Month/Year) ear infecton 09/01/19
--- OUTSIDE RECORDS SUMMARY | 2025-07-07 11:02 | XMS_ITS | Encounter Summary ---
Author Organization [facility] Address [address] [address] Phone Care Team Providers Care Presiding Judge Name Role Phone Kalani Valdes CONTACT CENTER REPRESENTATIVE Primary Care Provider [phone]- [phone] Encounter Details Date Type Department Care Team (Late st Contact Info) Description 07/06/2025 Orders Only [facility] [address] [place] [address] Minoo Crews [address] [place] [address] [email or web address] Pelvic pain Social History Tobacco Use Types [...] PM EDT documented as of this encounter Plan of Treatment Upcoming Encounters Date Type Department Care Team (Late st Contact Info) Description 09/27/2025 11:00 AM EST Follow-Up [facility] [address] [facility] ASB[address] [place] [address] Chinmay Cheema MD [address] [place] [address] Infertility [place] [address] [email or web address] documented as of this encounter Procedures Procedure Name Priority Date/Time Associated Diagnosis Comments US PELVIS Routine 07/06/2025 2:40 PM EDT Pelvic pain documented in this encounter Results * US Pelvis (07/06/2025 2:40 PM EDT) Anatomical Region Laterality Modality Pelvis, Uterus/Adnexa Ultrasound Diagnostic us Chinmay Cheema MD IMG US PELVIS Final Result documented in this encounter Visit Diagnoses Diagnosis Pelvic pain documented in this encounter Care Teams Presiding Judge Relationship Specialty Start Date End Date Kalani Valdes NP [address] [place] [address] PCP - General Nurse Practitioner 03/11/25 documented as of this encounter Additional Source Comments The information contained in this document represents components of the legal health record. It is not the complete legal health record.[facility]
--- OUTSIDE RECORDS SUMMARY | 2025-07-07 11:02 | XMS_ITS | Encounter Summary ---
Author Organization [facility] Address [address] [place] [address] Care Team Providers Care Mobile Sales Expert Name Role Phone Unavailable Primary Care Provider Unavailabl e Encounter Details Date Type Department Care Team (Late st Contact Info) Description 10/15/2024 Lab Requisition [facility] - Main Lab [address] [facility] [place] [address] Jeronimo Hyde MD [address] [place] [address] Calculus of kidney Social History [...] developed and its performance characteristics determined by [facility] in a manner consistent with CLIA requirements. This test has not been cleared or approved by the U.S. Food and Drug Administration. Test performed at [facility], [address], [place] [address] Gabrielle Campbell MD, PhD - Web Services Architect Calculus 10/14/2024 10/15/2024 1:1 1 PM EST us Jeronimo Hyde MD LAB BODY FLUIDS AND STOO LS ORDERABLES Final Result [facility] [address] [place] [address] documented in this encounter Visit Diagnoses Diagnosis Calculus of kidney documented in this encounter
--- OUTSIDE RECORDS SUMMARY | 2025-07-07 11:02 | XMS_ITS | Clinical Summary ---
Author Organization [facility] Address [address] [address] Phone Care Team Providers Care Hotel Associate Name Role Phone Kalani Valdes CERTIFIED ORTHOTIC FITTER Primary Care Provider [phone]- [phone] Allergies Active Allergy Reactions Criticality Noted Date [...] 2 (two) times a day. 2 Active guanFACINE (INTUNIV) 3 mg ER tablet [...] 2 (two) times a day. 2 Active methotrexate, PF, (REDITREX) 20 mg/0.8 mL subcutaneous syringe 9 Active norethindrone (AYGESTIN) 5 mg tablet Take 1 tablet (5 mg total) by mouth daily. 30 tablet 3 5 Active desogestreL-ethi nyl estradioL (APRI) 0.15-0.03 mg per tablet Take 1 tablet by mouth daily. 9 07/06/20 25 Discontin ued(Ineff ective) Active Problems Problem Noted Date Diagnosed Date Endometriosis of pelvic peritoneum 04/06/2025 Encounters Date Type Department Care Team Description 07/06/2025 1:00 PM EDT Follow-Up [facility] [address] [place] [address] Chinmay Cheema MD Endometriosis of pelvic peritoneum (Primary Dx); Pelvic pain 07/06/2025 Orders Only [facility] [address] [place] [address] Minoo Crews Pelvic pain 04/06/2025 2:00 PM EDT Office Visit [facility] [address] [place] [address] Chinmay Cheema MD Endometriosis of pelvic peritoneum (Primary Dx); Pelvic pain from Last 3 Months Social History Tobacco [...] Mass Index 28.44 07/06/2025 12:42 PM EDT Plan of Treatment Upcoming Encounters Date Type Department Care Team ([facility] st Contact Info) Description 09/27/2025 11:00 AM EST Follow-Up [facility] [address] [place] [address] ASB1-3 [place] [address] Chinmay Cheema MD [address] [place] [address] Infertility [place] [address] [email or web address] Health Maintenance Due Date Last Done [...] SCREENING (On ce After 26 Yrs) Completed 07/06/2025 HEPATITIS A VACCINES Aged Out No long [...] this topic Medical Devices Not on file Procedures Procedure Name Priority Date/Time Associated Diagnosis Comments US PELVIS Routine 07/06/2025 2:40 PM EDT Pelvic pain from Last 3 Months Results * US Pelvis (07/06/2025 2:40 PM EDT) Anatomical Region Laterality Modality Pelvis, Uterus/Adnexa Ultrasound Diagnostic Chinamy Cheema MD [facility] [place]ELVIS Final Result from Last 3 Months Insurance [facility] [place] [address] [place] Care Teams Hotel Associate Relationship Specialty Start Date End Date Kalani Valdes NP [address] [place] [address] [place] [address] PCP - General Nurse Practitioner 03/11/25 Additional Source Comments The information contained in this document represents components of the legal health record. It is not the complete legal health record.[facility]
--- OUTSIDE RECORDS SUMMARY | 2025-07-07 11:03 | XMS_ITS | Patient Health Record ---
Author Organization [facility] Address [address] [place] [address] [place] [address] Care Team Providers Care Family Intervention Specialist Name Role Phone BISHOP LAMB Primary Care Provider Unavailabl e Reason For Referral No Information Plan Of Treatment No Information Insurance Providers Payer Name Payer Address Payer Phone Subscriber Number Group Number Insured Name Patient Relationship to Insured Coverage Start Date Coverage End Date CIGNA PPO/188 [id number] [address] [place], [place] [id number] [phone] [id number] Jessa Dc Self - patient is the insured 8 8
== END 2025-07-07 09:34 | disposition home or self-care (01) ==
LOC: HO.HMGAL 09:34
PROVIDERS: PCP Nurse Practitioner Family; Visit Provider Registered Nurse Emergency
DX: J30.89 Other allergic rhinitis (principal)
CPT/HCPCS: 95117; 95165

== ENCOUNTER 2025-07-07 12:07 | Outpatient (REF) | payer OTHER, SELFPAY ==
[2025-07-07 12:41] LABS: Appearance Urine Clear; Glucose Urine UA Negative (Negative); PH 6.0 (5.0-9.0); Specific Gravity - Urine 1.025 (1.005-1.025)
[2025-07-07 12:55] LABS: Microalbum/Creatinine Ratio Ur 4.7 ug/mg cr (<30)
== END 2025-07-07 12:08 | disposition home or self-care (01) ==
LOC: HO.LNP 12:07
PROVIDERS: Visit Provider Nurse Practitioner Family
DX: Z00.00 Encounter for general adult medical examination without abnormal findings (principal)
CPT/HCPCS: 81003; 82043; 82570

== ENCOUNTER 2025-07-12 07:55 | Outpatient (AMB) | payer OTHER, SELFPAY ==
--- NOTE | 2025-07-12 07:59 | A.OFFPC_ITS ---
Vital Signs 07/12/25 08:05 Height 5 ft 1 in Weight 153 lb 8 oz BMI 29.0 BP 123/57 L Blood Pressure Location Lt brachial Position Sitting Respiration 16 Pulse 94 Pulse Source Pulse Oximeter Temp 98.3 F Temp Source Oral Pulse Oximetry (%) 100 Oxygen Delivery Method Room Air Intake Visit Reasons: CPE, labs review on/after 07/06/25 Intake Note: patient here for CPE Simonizer Required: No Is last menstrual period known: No Post menopausal: No Patient : No Allergies amoxicillin Allergy (Intermediate, Verified 07/12/25 08:13) hives Medication List - Last Reconciled 07/12/25 by Kalani Valdes CNP atorvastatin 10 mg PO BEDTIME betamethasone dipropionate 0.05% 1 appl topical DAILY PRN clascoterone 1% (Winlevi) 1 appl topical DAILY folic acid 1 mg PO DAILY guanfacine 3 mg PO DAILY mecobalamin (vitamin B12) 1,000 mcg PO DAILY methotrexate (PF) 20 mg subcut QWEEK norethindrone acetate 5 mg PO DAILY secukinumab (Cosentyx) 150 mg subcut Q4W tacrolimus-niacinamide 0.1-4 % ea topical vortioxetine (Trintellix) 10 mg PO DAILY Tobacco use date assessed: 07/12/25 Dental Screening Dental Screen Date: 07/12/25 Did you have a dental visit in the last 12 months?: Yes Did you have a dental problem in the last 6 months where you did not have access to dental care?: No Was dental information given to patient?: Patient has dentist HPI HPI Comments History of Present Illness Details 40-year-old female presents for an exten ded physical exam and review of recent lab results. She admits to taking her medications as prescribed without adverse reactions. She notes that her mood is generally controlled. She is currently followed by rheumatology but requests a referral to a new practice. Acute issue(s) - None Past Medical History - Arthralgia multiple sites, cervicalgia , low back pain, scoliosis, ankylosing spondylitis, Marci-Danlos, osteopenia, TMJ dysfunction, psoriasis arthropathic, hyperlipidemia, endometriosis, celiac disease, ADHD inattentive type, anxiety, depression, dermatillomania, trichotillomania, ADHD, acid reflux, sinusitis, asthma, atrophy (senile) of uterus, vaginal dryness, chronic dry eyes, acne Surgical History - None Family History - Dad: HTN - MGM: Alcohol abuse Social History - Nonsmoker. Does not vape. Drinks 1- 2 glasses of hard cider. Occasionally use CBD to next for neck pain - Has been making healthy dietary choice s. Active but does not exercise. Sleep is erratic - sleep in two 4 hours sessions nightly Health maintenance - Last eye exam was several years ago. R eferred to Ophthalmology for routine eye exam - Last dental visit was last month - Last tetanus vaccine is probably in . Record not currently available - Has not been vaccinated for the flu ; declines vaccination - Last pap smear test was 3 years ago at her former PCP. Negative - Last DEXA scan was on 12/23/2023: T-sco re lumbar-2.1, femoral neck -0.6, FRAX 3.6%/0.1% (review of Rheumatology record) Specialists - Dr. Stokes, Rhematology, Arthritis [facility] - Argenis Chong PA-C, [facility] [place]. Nunez psychiatrist, [facility], [place] manufacturer's service representative [facility] Medical History (Updated 07/12/25 @ 08:39 by Kalani Valdes CNP) Endometriosis Dermatillomania Trichotillomania ADHD Depression Anxiety Atrophy (senile) of uterus Vaginal dryness Acid reflux Scoliosis Ankylosing spondylitis Psoriatic arthritis High cholesterol Sinusitis Asthma Family History Mother High blood pressure Diabetes Father High cholesterol Cancer Paternal Grandmother High cholesterol Cancer Sister FH: mental illness Social History Housing: House Patient Tobacco Use Status: Never used Tobacco e-Cigarette/Vaping Use: Never Used Second Hand Smoke Exposure: No service: No Current occupational status: employed 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 1. Little interest or pleasure in doing things: more than half the days 2. Feeling down, depressed, or hopeless: several days 3. Trouble falling or staying asleep, or sleeping too much: several days 4. Feeling tired or having little energy: nearly every day 5. Poor appetite or overeating: not at all 6. Feeling bad about yourself - or that you are a failure or have let yourself or your family down: several days 7. Trouble concentrating on things, such as reading the newspaper or watching television: several days 8. Moving or speaking so slowly that other people could have noticed. Or the opposite - being so fidgety or restless that you have been moving around a lot more than usual: not at all 9. Thoughts that you would be better off or of hurting yourself in some way: not at all Total score: 9 Depression Screening Interpretation: Positive Depression Screening Follow-up: Existing condition and In treatment Depression Screening Done: Yes 81357 - PHQ-9 Billing: Yes Source: Developed by Drs. Anthony Segal, Margy Ghosh, Ramin Kaur and colleagues, with an educational tiffany from [employer]. Thrive Questionnaire Date Thrive assessed: 07/12/25 I am a: Patient What is your living situation today?: I have a steady place to live Within the past 12 months, did the food you bought not last and you didn't have the money to get more?: Never true Within the past 12 months, did you worry whether your food would run out before you got money to buy more?: Never true Do you have trouble paying for medicines?: No Do you have trouble getting transportation to medical appointments?: No Do you have trouble paying your heating and electricity bill?: No Do you have trouble taking care of your child, family member or friend?: No Do you have trouble with day-to-day activities such as bathing, preparing meals, shopping, managing finances, etc.?: No Are you currently unemployed and looking for a job?: No Are you interested in more education?: No Please select the resources that you would like help with: None Currently or been in a relationship where the following occur: I choose not to answer THRIVE Score: 0 AUDIT C Alcohol Use Questionnaire (AUDIT-C) 1. How often do you have a drink containing alcohol?: Monthly or less 2. How many drinks containing alcohol do you have on a typical day when you are drinking?: 1 or 2 3. How often do you have six or more drinks on one occasion?: Never Total Score: 1 Score Reviewed/Action Taken: Yes ALVAREZ-7 AMB Questionnaire ALVAREZ-7 Date ALVAREZ - 7 assessed: 07/12/25 Feeling nervous, anxious, or on edge: 1 = Several days Not being able to stop or control worryin = Several days Worrying too much about different things: 1 = Several days Trouble relaxin = Several days Being so restless that it is hard to sit still: 0 = Not at all Becoming easily annoyed or irritable: 1 = Several days Feeling afraid as if something awful might happen: 1 = Several days Total ALVAREZ-7 score (0-4 normal; 5-9 mild; 10-14 moderate; 15-21 severe): 6 Source: Developed by Drs. Anthony Segal, Margy Ghosh, Ramin Kaur and colleagues, with an educational tiffany from [employer]. ALVAREZ-7 Assessment Billing ALVAREZ-7 Assessment Tool: ALVAREZ-7 Assessment 76274 Review of Systems Const Details: Denies chills, Denies fatigue, Denies fever(s), Denies headache(s) and Denies weakness HEENT Denies change in vision, Denies dizziness, Denies headache(s), Denies hearing loss, Denies nasal congestion, Denies sinus pain, Denies sinus pressure and Denies sore throat Card Denies chest pain, Denies lightheadedness, Denies dyspnea and Denies other (palpitations) Resp Denies cough, Denies dyspnea and Denies wheezing GI Denies abdominal pain, Denies melena, Denies hematochezia, Denies change in bowel habits, Denies dyspepsia and Denies nausea Denies hematuria and Denies dysuria Musc Denies abnormal gait, Denies myalgias, Denies arthralgias, Denies numbness and Denies tingling Skin/Breast Denies rash, Denies unusual bruising and Denies wounds Neuro Denies abnormal gait, Denies dizziness, Denies headache(s), Denies memory loss, Denies numbness, Denies Sensory deficit (Neuro), Denies tingling and Denies weakness Psych Denies anxiety, Denies depression and Denies memory loss Endo Denies cold intolerance, Denies fatigue, Denies heat intolerance, Denies polydipsia and Denies polyuria Mack/Lymph Denies easy bleeding and Denies easy bruising Aller/Immun Denies wheezing Physical exam (Primary Care) Tobacco/Smoking Status: Tobacco use Status Tobacco use date assessed 02/16/25 07/12/25 08:01 Patient Tobacco Use Status Never used Tobacco 07/12/25 08:01 e-Cigarette/Vaping Use Never Used 07/12/25 08:01 Depression Screening Interpretation: Positive Depression Screening Follow-up: Existing condition and In treatment Thrive Assessment: Date of Thrive Assessment Date Thrive assessed 01/22/25 07/12/25 08:01 Currently or been in a relationship where the following occur: I choose not to answer Const Other: General: no acute distress, well developed, alert and awake Nutritional Appearance: well nourished Orientation/consciousness: patient oriented x3 HENMT Head: Yes normocephalic and Yes atraumatic Ears: hearing grossly normal bilaterally and TM's normal bilaterally General nose exam: Normal external nose present and Normal nares present Mouth: Normal oral and palatal mucosa present and moist mucous membranes Teeth and gingiva: dentition normal Throat: Yes oropharynx normal Eyes Pupils: Equal, round and reactive pupils present and Pupil accommodation reflex normal EOM: EOMs intact bilaterally Neck Neck: Yes normal visual inspection, Yes no lymphadenopathy and Yes trachea midline Thyroid: Thyroid normal Carotids: no bruits Lymphatic: no lymphadenopathy noted Chest Chest palpation & inspection: normal inspection of the chest Resp Effort & Inspection: normal respiratory effort Auscultation: clear to auscultation bilaterally Cardio Rate: regular rate Rhythm: regular rhythm Heart sounds: S1 normal heart sound present, S2 normal heart sound present, no gallops, no murmurs and no rubs Bruits: no abdominal aortic bruits and no carotid bruits GI Palpation (GI): No Abdominal aortic bruit present, Soft to palpation, nontender, No hepatosplenomegaly present and No Rebound tenderness present Auscultation: normal bowel sounds General: Yes no CVA tenderness Back/Spine/Pelvis Back: no CVA tenderness Cervical Spine: cervical ROM normal and No Cervical spine tenderness Thoracic/Lumbar Spine: thoraco-lumbar ROM normal, No pain with thoraco-lumbar ROM, No thoracic spinal tenderness and No lumbar spinal tenderness Skin General: warm and dry. Normal skin color. Normal skin turgor Lesions: no lesions Rashes: no rashes Trauma: no lacerations or abrasions Wounds: no wounds Nails: normal Neuro General: patient oriented x3, gait normal and CN's II-XI intact bilaterally Cranial nerves: Yes Equal, round and reactive pupils present Cognition (Neuro): normal cognition Gait exam (Neuro): Normal gait present Motor exam (neuro): 5/5 motor strength present throughout Sensory Exam: No Sensory deficit (Neuro) Deep tendon reflexes (DTR's): Right patellar reflex intensity grade: 2+ and Left patellar reflex intensity grade: 2+ Extrem General: Yes normal to inspection, No edema and No calf tenderness Psych Appearance: grossly normal Affect: normal affect Attitude: cooperative Thought process: Normal thought process present Coding Level of Care Code Est Pt Level 3 (53837) Est Pt Prev Care 18-39y(25480) Diagnoses Normal physical examination, routine Z00.00 High cholesterol E78.00 Sleep disturbance G47.9 Psoriatic arthritis L40.50 Eye exam, routine Z01.00 Additional Codes ALVAREZ-7 Assessment Billing - ALVAREZ-7 Assessment Tool: ALVAREZ-7 Assessment 69781 ([id number]) PHQ-9 - 38214 - PHQ-9 Billing: Yes ([id number]) Assessment & Plan Assessment & Plan (1) Normal physical examination, routine: Code(s): Z00.00 - Encounter for general adult medical examination without abnormal findings Category: Medical Plan: No significant functional limitation noted. Continue current treatment regimen. Continue follow-up with specialists as planned. For lipid panel blood work before next visit. Follow-up for telehealth visit in 12 weeks. Return sooner with symptoms or concerns. Verbalized understanding and agreed with the plan. (2) High cholesterol: Code(s): E78.00 - Pure hypercholesterolemia, unspecified Category: Medical Plan: Recent triglycerides and LDL levels are slightly elevated, 161 and 102 respectively, total cholesterol and HDL levels are normal. Continue to take atorvastatin 10 mg daily at bedtime. Advised to limit foods high in saturated fat and avoid foods high in trans fat. Routine exercise encouraged. Fast for 10-12 hours, may drink water, and perform lipid panel blood work a few days before next visit. Follow-up in 12 weeks. Verbalized understanding and agreed with the plan. (3) Sleep disturbance: Code(s): G47.9 - Sleep disorder, unspecified Category: Medical Plan: Sleep is erratic - sleep in two 4 hours sessions nightly. Instructed on sleep hygiene. Routine exercise encouraged. Follow-up as needed. Verbalized understanding and agreed with the plan. (4) Psoriatic arthritis: Code(s): L40.50 - Arthropathic psoriasis, unspecified Category: Medical Plan: She is currently followed by rheumatology but requests a referral to a new practice. Referred to [facility] Rhe[facility]. (5) Eye exam, routine: Code(s): Z01.00 - Encounter for examination of eyes and vision without abnormal findings Category: Medical Plan: Last eye exam was several years ago. Referred to Ophthalmology for routine eye exam. Orders: Orders Lipid Panel 3 Months E78.00 - Pure hypercholesterolemia, unspecified Referrals Rheumatology Referral L40.50 - Arthropathic psoriasis, unspecified Ophthalmology Referral Z01.00 - Encounter for examination of eyes and vision without abnormal findings
--- OUTSIDE RECORDS SUMMARY | 2025-07-12 07:59 | XMS_ITS | Patient Health Record ---
Author Organization [facility] [place] Address [address] [facility] [address] [place] [id number] Care Team Providers Care Post Exchange Manager Name Role Phone Anthony Najera Primary Care Provider Allergies Allergen (clinical drug ingredient) Drug/Non Drug Allergy documented on EMR Reaction Allergy Type Onset Date Status amoxicillin Amoxicillin Unknown Drug Allergy Act girish erythromycin Erythromycin Unknown Drug Allergy A ctive Reason For Referral No Information Medications Medication SIG (Take, Route, Frequency, Duration) Notes Start Date End Date Status V-Dhcows-U-Cysteine OTC Active L-Tyrosine 500 MG 1 capsule [...] Coverage End Date CIGNA PPO [address] [place] [id number] Jessa Newton Self - patient is the insured 2018 Medical (General) History Medical History History ICD Code gerd depression trichotillomania scoliosis eczema periodontal endometriosis celiac (undiagnosed) asthma lactose intolerance migrains broken bone left and right hand Surgical History Surgery Date(Month/Year) Hospitalization History Reason Date(Month/Year) ear infecton 09/01/19
--- OUTSIDE RECORDS SUMMARY | 2025-07-12 07:59 | XMS_ITS | Patient Health Record ---
Author Organization [facility] Address [address] [place] [address] [place] [address] Care Team Providers Care Forest Firefighter Name Role Phone BISHOP LAMB Primary Care Provider Unavailabl e Reason For Referral No Information Plan Of Treatment No Information Insurance Providers Payer Name Payer Address Payer Phone Subscriber Number Group Number Insured Name Patient Relationship to Insured Coverage Start Date Coverage End Date CIGNA PPO/188 061 [address] [place], [place] [id number] [phone] [id number] Jessa Dc Self - patient is the insured 8 8
--- OUTSIDE RECORDS SUMMARY | 2025-07-12 07:59 | XMS_ITS | Encounter Summary ---
Author Organization [facility] Address [address] [place] [address] Care Team Providers Care Svp Monetization Name Role Phone Unavailable Primary Care Provider Unavailabl e Encounter Details Date Type Department Care Team (Late st Contact Info) Description 10/15/2024 Lab Requisition [facility] - Main Lab [address] [facility] [place] [address] Jeronimo Hyde MD [address] [place] [address] Calculus of kidney Social History [...] developed and its performance characteristics determined by [facility] in a manner consistent with CLIA requirements. This test has not been cleared or approved by the U.S. Food and Drug Administration. Test performed at [facility], [address], [place] [address] Gabrielle Campbell MD, PhD - Parts Salesman Calculus 10/14/2024 10/15/2024 1:1 1 PM EST us Jeronimo Hyde MD LAB BODY FLUIDS AND STOO LS ORDERABLES Final Result [facility] [address] [address] documented in this encounter Visit Diagnoses Diagnosis Calculus of kidney documented in this encounter
--- OUTSIDE RECORDS SUMMARY | 2025-07-12 07:59 | XMS_ITS | Clinical Summary ---
Author Organization 299 [facility] Address [address] [place] [address] Phone Care Team Providers Care General Labor Name Role Phone Unavailable Primary Care Provider [...] age to complete this topic Insurance [place] [address] [facility]
--- OUTSIDE RECORDS SUMMARY | 2025-07-12 07:59 | XMS_ITS | Encounter Summary ---
Author Organization [facility] Address [address] [place] [address] [address] Phone Care Team Providers Care Industrial Spray Painter Name Role Phone Kalani Valdes LIQUEFIER Primary Care Provider +1- [phone] Encounter Details Date Type Department Care Team (Late st Contact Info) Description 07/06/2025 Orders Only [facility] [address] [place] [address] Minoo Crews [address] [place] [phone] [email or web address] Pelvic pain Social History Tobacco [...] Info) Description 09/27/2025 11:00 AM EST Follow-Up [facility] [address] [facility] [address] [place] [address] Chinmay Cheema MD [address] [place] [address] Infertility [place] [address] [email or web address] documented as of this encounter Procedures Procedure [...] pain documented in this encounter Care Teams Industrial Spray Painter Relationship Specialty Start Date End Date Kalani Valdes NP [address] [place] [address] PCP - General Nurse Practitioner 03/11/25 documented as of this encounter Additional Source Comments The information contained in this document represents components of the legal health record. It is not the complete legal health record.[facility]
--- OUTSIDE RECORDS SUMMARY | 2025-07-12 07:59 | XMS_ITS | Clinical Summary ---
Author Organization [facility] Address [address] [address] Phone Care Team Providers Care Mortgage Clerk Name Role Phone Kalani Valdes SOCIAL WELFARE CLERK Primary Care Provider [phone] Allergies Active Allergy Reactions Criticality Noted Date [...] Team Description 07/06/2025 1:00 PM EDT Follow-Up [facility] [address] [place] [address] ASB1-3 [place] [address] Chinmay Cheema MD Endometriosis of pelvic peritoneum (Primary Dx); Pelvic pain 07/06/2025 Orders Only [facility] [address] [place] [address] Minoo Crews Pelvic pain from Last 3 Months Social [...] Info) Description 09/27/2025 11:00 AM EST Follow-Up [facility] [address] [place], [place] [address]3 [place] [address] Chinmay Cheema MD [address] [place] [address] for Infertility [place] [address] [email or web address] Health Maintenance Due Date Last Done [...] Region Laterality Modality Pelvis, Uterus/Adnexa Ultrasound Diagnostic Chinmay Cheema MD IM US PELVIS Final Result from Last 3 Months Insurance [facility] [place] POS Member Subscriber Plan / Payer (Ef fective 2024-Present) Name:Jessa Dc Relation to Subscriber:Self Name:Jessa Dc Payer ID:[id number] (NAIC) Group ID:Not on file Type:POS Address: [address] [place] [id number] Care Teams Mortgage Clerk Relationship Specialty Start Date End Date Kalani Valdes NP [address] [facility] [place] [address] PCP - General Nurse Practitioner 03/11/25 Additional Source Comments The information contained in this document represents components of the legal health record. It is not the complete legal health record.[facility]
[2025-07-12 08:05] VITALS: BP 123/57; PULSE 94; RESP 16; TEMP 36.8; O2SAT 100; BMI 29.0
== END 2025-07-12 08:37 | disposition home or self-care (01) ==
LOC: HO.HMCFM 07:56
PROVIDERS: PCP Nurse Practitioner Family; Visit Provider Nurse Practitioner Family
DX: Z00.00 Encounter for general adult medical examination without abnormal findings (principal); E78.00 Pure hypercholesterolemia, unspecified; G47.9 Sleep disorder, unspecified; L40.50 Arthropathic psoriasis, unspecified

== ENCOUNTER → 2025-07-12 07:55 | Outpatient (BNVA) | payer OTHER, SELFPAY | PROVIDERS: PCP Nurse Practitioner Family; Visit Provider Nurse Practitioner Family | DX: Z00.00 Encounter for general adult medical examination without abnormal findings (principal); E78.00 Pure hypercholesterolemia, unspecified; G47.9 Sleep disorder, unspecified; L40.50 Arthropathic psoriasis, unspecified | CPT/HCPCS: 96127 ==

== ENCOUNTER 2025-07-14 09:49 | Outpatient (AMB) | payer OTHER, SELFPAY ==
--- OUTSIDE RECORDS SUMMARY | 2025-07-14 11:49 | XMS_ITS | Encounter Summary ---
Author Organization [facility] Address [address] [address] Phone Care Team Providers Care Meal Packer Name Role Phone Kalani Valdes WELT EDGE ROUNDER Primary Care Provider [phone]- [phone] Encounter Details Date Type Department Care Team (Late st Contact Info) Description 07/06/2025 Orders Only [facility] [address] [place] [address] Minoo Crews [address] [place] [id number] [email or web address] Pelvic pain Social History [...] Info) Description 09/27/2025 11:00 AM EST Follow-Up [facility] [address] [facility] ASB1-3 [place] [address] Chinmay Cheema MD [address] [place] [address] Infertility and [place] [address] [email or web address] documented as of this encounter Procedures Procedure [...] pain documented in this encounter Care Teams Meal Packer Relationship Specialty Start Date End Date Kalani Valdes NP [address] [place] [address] PCP - General Nurse Practitioner 03/11/25 documented as of this encounter Additional Source Comments The information contained in this document represents components of the legal health record. It is not the complete legal health record.[facility]
--- OUTSIDE RECORDS SUMMARY | 2025-07-14 11:49 | XMS_ITS | Clinical Summary ---
Author Organization [address] [facility] Address [address] [place] [address] Phone Care Team Providers Care Pharmacy Director Name Role Phone Unavailable Primary Care Provider [...] complete this [place] [id number] [facility]
--- OUTSIDE RECORDS SUMMARY | 2025-07-14 11:49 | XMS_ITS | Patient Health Record ---
Author Organization [facility] Address [address] [facility] [address] [place] [id number] Care Team Providers Care Home Health Aid Name Role Phone Anthony Najera Primary Care Provider [phone] Allergies Allergen (clinical drug ingredient) Drug/Non Drug Allergy documented on EMR Reaction Allergy Type Onset Date Status amoxicillin Amoxicillin Unknown Drug Allergy Act girish erythromycin Erythromycin Unknown Drug Allergy A ctive Reason For Referral No Information Medications Medication SIG (Take, Route, Frequency, Duration) Notes Start Date End Date Status J-Cahrgu-V-Cysteine OTC Active L-Tyrosine 500 MG 1 capsule [...] Coverage End Date [employer] PPO [address] [place] [address] [id number] Jessa Newton Self - patient is the insured 2018 Medical (General) History Medical History History ICD Code gerd depression trichotillomania scoliosis eczema periodontal endometriosis celiac (undiagnosed) asthma lactose intolerance migrains broken bone left and right hand Surgical History Surgery Date(Month/Year) Hospitalization History Reason Date(Month/Year) ear infecton 09/01/19
--- OUTSIDE RECORDS SUMMARY | 2025-07-14 11:50 | XMS_ITS | Patient Health Record ---
Author Organization [facility] Billing Info Address [address] [place] [address] [place] [address] Care Team Providers Care Credit Support Specialist Name Role Phone BISHOP LAMB Primary Care Provider Unavailabl e Reason For Referral No Information Plan Of Treatment No Information Insurance Providers Payer Name Payer Address Payer Phone Subscriber Number Group Number Insured Name Patient Relationship to Insured Coverage Start Date Coverage End Date [employer] PPO/188 [id number] [address] [place], [place] [id number] Jessa Dc Self - patient is the insured 8 [phone]
--- OUTSIDE RECORDS SUMMARY | 2025-07-14 11:50 | XMS_ITS | Encounter Summary ---
Author Organization [facility] Address [address] [place] [address] Care Team Providers Care Care Professionals Name Role Phone Unavailable Primary Care Provider Unavailabl e Encounter Details Date Type Department Care Team (Late st Contact Info) Description 10/15/2024 Lab Requisition [facility] - Main Lab [address] [facility] [place] [address] Jeronimo Hyde MD [address] [place] [address] Calculus of kidney Social History [...] developed and its performance characteristics determined by [facility] in a manner consistent with CLIA requirements. This test has not been cleared or approved by the U.S. Food and Drug Administration. Test performed at [facility], [address], [place] [address] Gabrielle Campbell MD, PhD - Gas Flow Regulator Calculus 10/14/2024 10/15/2024 1:1 1 PM EST us Jeronimo Hyde MD LAB BODY FLUIDS AND STOO LS ORDERABLES Final Result [facility] [address] [place] [address] documented in this encounter Visit Diagnoses Diagnosis Calculus of kidney documented in this encounter
--- OUTSIDE RECORDS SUMMARY | 2025-07-14 11:50 | XMS_ITS | Clinical Summary ---
Author Organization [facility] Address [address] [address] Phone Care Team Providers Care Outbound Call Center Representative Name Role Phone Kalani Valdes FAST FOOD CREW LEAD Primary Care Provider [phone]- [phone] Allergies Active Allergy Reactions Criticality Noted Date [...] Team Description 07/06/2025 1:00 PM EDT Follow-Up [facility] [address] [place] [address] ASB1-3 [place] [address] Chinmay Cheema MD Endometriosis of pelvic peritoneum (Primary Dx); Pelvic pain 07/06/2025 Orders Only [facility] [address] [place] [address] Minoo Crews Pelvic pain from Last 3 [...] Info) Description 09/27/2025 11:00 AM EST Follow-Up [facility] [address] [place], [place] [address]-[address] [place] [address] Chinmay Cheema MD [address] [place] [address] for Infertility [place] [address] [email or web address] Health Maintenance Due Date Last Done [...] Final Result from Last [address] [facility] [place] Member Subscriber Plan / Payer (Ef fective 2024-Present) Name:Jessa Dc Relation to Subscriber:Self Name:Jessa Dc Payer ID:[id number] (NAIC) Group ID:Not on file Type:POS Address: [address] [place] [id number] Care Teams Outbound Call Center Representative Relationship Specialty Start Date End Date Kalani Valdes NP [address] [facility] [place] [address] PCP - General Nurse Practitioner 03/11/25 Additional Source Comments The information contained in this document represents components of the legal health record. It is not the complete legal health record.[facility]
== END 2025-07-14 09:49 | disposition home or self-care (01) ==
LOC: HO.HMGAL 09:49
PROVIDERS: PCP Nurse Practitioner Family; Visit Provider Registered Nurse Emergency
DX: J30.89 Other allergic rhinitis (principal)
CPT/HCPCS: 95117; 95165

== ENCOUNTER 2025-07-21 09:30 | Outpatient (AMB) | payer OTHER, SELFPAY ==
--- OUTSIDE RECORDS SUMMARY | 2025-07-21 10:35 | XMS_ITS | Clinical Summary ---
Author Organization [facility] Address [address] [place] [address] Phone Care Team Providers Care Bush Regenerator Name Role Phone Unavailable Primary Care Provider [...] age to complete this topic Insurance [place] [address] [facility]
--- OUTSIDE RECORDS SUMMARY | 2025-07-21 10:37 | XMS_ITS | Patient Health Record ---
Author Organization [facility] Address [address] [facility] [address] SHAWNA Johns [id number] Care Team Providers Care Clothing Manager Name Role Phone Anthony Najera Primary Care Provider [phone] Allergies Allergen (clinical drug ingredient) Drug/Non Drug Allergy documented on EMR Reaction Allergy Type Onset Date Status amoxicillin Amoxicillin Unknown Drug Allergy Act girish erythromycin Erythromycin Unknown Drug Allergy A ctive Reason For Referral No Information Medications Medication SIG (Take, Route, Frequency, Duration) Notes Start Date End Date Status V-Cuznxw-I-Cysteine OTC Active L-Tyrosine 500 MG 1 capsule [...] Coverage End Date CIGNA PPO [address] [place] [address] [id number] Jessa Newton Self - patient is the insured 2018 Medical (General) History Medical History History ICD Code gerd depression trichotillomania scoliosis eczema periodontal endometriosis celiac (undiagnosed) asthma lactose intolerance migrains broken bone left and right hand Surgical History Surgery Date(Month/Year) Hospitalization History Reason Date(Month/Year) ear infecton 09/01/19
--- OUTSIDE RECORDS SUMMARY | 2025-07-21 10:37 | XMS_ITS | Encounter Summary ---
Author Organization [facility] Address [address] [address] Phone Care Team Providers Care Pulp Maker Name Role Phone Kalani Valdes ON AWAKE COUNSELOR Primary Care Provider +1- [phone] Encounter Details Date Type Department Care Team (Late st Contact Info) Description 07/06/2025 Orders Only [facility] 75 [place] [address] Minoo Crews [address] [place] [address] [email or web address] Pelvic pain Social History Tobacco Use Types [...] Info) Description 09/27/2025 11:00 AM EST Follow-Up [facility] 75 [facility] ASB1-3 [place] [address] Chinmay Cheema MD [address] [place] [address] Infertility [place] [address] [email or web address] documented as of this encounter Procedures Procedure [...] pain documented in this encounter Care Teams Pulp Maker Relationship Specialty Start Date End Date Kalani Valdes NP 140 [place] [address] PCP - General Nurse Practitioner 03/11/25 documented as of this encounter Additional Source Comments The information contained in this document represents components of the legal health record. It is not the complete legal health record.[facility]
--- OUTSIDE RECORDS SUMMARY | 2025-07-21 10:37 | XMS_ITS | Patient Health Record ---
Author Organization [facility] Billing Info Address [address] [place] [address] [place] [address] Care Team Providers Care Sports Lawyer Name Role Phone BISHOP LAMB Primary Care Provider Unavailabl e Reason For Referral No Information Plan Of Treatment No Information Insurance Providers Payer Name Payer Address Payer Phone Subscriber Number Group Number Insured Name Patient Relationship to Insured Coverage Start Date Coverage End Date CIGNA PPO/188 [id number] [address] [place], [place] [id number] [phone] [id number] Jessa Dc Self - patient is the insured 8 8
--- OUTSIDE RECORDS SUMMARY | 2025-07-21 10:37 | XMS_ITS | Encounter Summary ---
Author Organization [facility] Address [address] [place] [address] Care Team Providers Care Joy Loading Machine Operator Name Role Phone Unavailable Primary Care Provider Unavailabl e Encounter Details Date Type Department Care Team (Late st Contact Info) Description 10/15/[address] [facility] - Main Lab 299 [facility] [place] [address] Jeronimo Hyde MD [address] [place] [address] Calculus of kidney Social History [...] and its performance characteristics determined by [facility] in a manner consistent with CLIA requirements. This test has not been cleared or approved by the U.S. Food and Drug Administration. Test performed at [facility], [address], [place] [address] Gabrielle Campbell MD, PhD - Diesel Automotive Technician Calculus 10/14/2024 10/15/2024 1:1 1 PM EST us Jeronimo Hyde MD LAB BODY FLUIDS AND STOO LS ORDERABLES Final Result [facility] [address] [place] [address] documented in this encounter Visit Diagnoses Diagnosis Calculus of kidney documented in this encounter
--- OUTSIDE RECORDS SUMMARY | 2025-07-21 10:37 | XMS_ITS | Clinical Summary ---
Author Organization [facility] Address [address] [address] Phone Care Team Providers Care Town Planner Name Role Phone Kalani Valdes SITE ADMINISTRATOR Primary Care Provider +1- [phone] Allergies Active Allergy Reactions Criticality Noted Date [...] Encounters Date Type Department Care Team Description 07/14/2025 Orders Only [facility] for Inf[facility] & Reproductive Surgery [address] [place] [address] Rica Price RN Endometriosis of pelvic peritoneum (Primary Dx); Pelvic pain 07/06/2025 1:00 PM EDT Follow-Up [facility] [address] [place] [address] Chinmay Cheema MD Endometriosis of pelvic peritoneum (Primary Dx); Pelvic pain 07/06/2025 Orders Only [facility] [address] [place] [address] Minoo Crews Pelvic pain from Last 3 [...] Upcoming Encounters Date Type Department Care Team ([facility] st Contact Info) Description 09/27/2025 11:00 AM EST Follow-Up [facility] Center for Infertility & Reproductive Surgery [address] [place] [address] ASB1-3 [place] [address] Chinmay Cheema MD [address] [place] [address] Infertility and [place] [address] [email or web address] Health Maintenance Due Date Last [...] Pelvis, Uterus/Adnexa Ultrasound Diagnostic Chinmay Cheema MD [facility] US PELVIS Final Result from Last 3 Months Insurance [facility] DENIO POS DENIO POS DENIO POS DENIO POS DENIO POS Care Teams Town Planner Relationship Specialty Start Date End Date Kalani Valdes NP [address] [place] [address] [place]INA [address] PCP - General Nurse Practitioner 03/11/25 Additional Source Comments The information contained in this document represents components of the legal health record. It is not the complete legal health record.[facility]
== END 2025-07-21 09:31 | disposition home or self-care (01) ==
LOC: HO.HMGAL 09:30
PROVIDERS: PCP Nurse Practitioner Family; Visit Provider Registered Nurse Emergency
DX: J30.89 Other allergic rhinitis (principal)
CPT/HCPCS: 95117; 95165

== ENCOUNTER 2025-07-28 09:12 | Outpatient (AMB) | payer OTHER, SELFPAY ==
--- OUTSIDE RECORDS SUMMARY | 2025-07-28 09:58 | XMS_ITS | Clinical Summary ---
Author Organization 299 [facility] Address [address] [place] [address] Phone Care Team Providers Care Counter Intelligence Name Role Phone Unavailable Primary Care Provider [...] age to complete this topic [place] [address] [facility]
--- OUTSIDE RECORDS SUMMARY | 2025-07-28 09:59 | XMS_ITS | Patient Health Record ---
Author Organization [facility] Billing Info Address [address] [place] [address] [place] [address] Care Team Providers Care Stock Tracer Name Role Phone BISHOP LAMB Primary Care Provider Unavailabl e Reason For Referral No Information Plan Of Treatment No Information Insurance Providers Payer Name Payer Address Payer Phone Subscriber Number Group Number Insured Name Patient Relationship to Insured Coverage Start Date Coverage End Date CIGNA PPO/188 061 [address] [place], [place] [id number] Jessa Dc Self - patient is the insured 8 8
--- OUTSIDE RECORDS SUMMARY | 2025-07-28 09:59 | XMS_ITS | Clinical Summary ---
Author Organization [facility] Address [address] [address] Phone Care Team Providers Care Cataloging Assistant Name Role Phone aKlani Valdes MANAGER CORPORATE MARKETING Primary Care Provider +1- [phone] Allergies Active Allergy Reactions Criticality Noted Date [...] Department Care Team Description 07/14/2025 Orders Only [facility] Center for Infertility & Reproductive Surgery [address] [place] [address] Rica Price RN Endometriosis of pelvic peritoneum (Primary Dx); Pelvic pain 07/06/2025 1:00 PM EDT Follow-Up [facility] for [facility] [address] [place] [address] Chinmay Cheema MD Endometriosis of pelvic peritoneum (Primary Dx); Pelvic pain 07/06/2025 Orders Only [facility] [address] [place] [address] Minoo Crews Pelvic pain from Last 3 [...] Upcoming Encounters Date Type Department Care Team ([facility] st Contact Info) Description 09/27/2025 11:00 AM EST Follow-Up [facility] Center for Infertility & Reproductive Surgery [address] [place] [address] ASB1-3 [place] [address] Chinmay Cheema MD [address] [place] [address] Infertility [place] [address] [email or web address] Health Maintenance Due Date Last Done Comments [...] patient's age to complete this topic IPV VACCINES Aged Out No longer eligi ble [...] Pelvis, Uterus/Adnexa Ultrasound Diagnostic Chinmay Cheema MD [facility] US PELVIS Final Result from Last 3 Months Insurance [facility] BOUSE POS [place] [id number] BOUSE POS Care Teams Cataloging Assistant Relationship Specialty Start Date End Date Kalani Valdes NP [address] [place] [address] JO[place] MOLINA [address] PCP - General Nurse Practitioner 03/11/25 Additional Source Comments The information contained in this document represents components of the legal health record. It is not the complete legal health record.[facility]
--- OUTSIDE RECORDS SUMMARY | 2025-07-28 09:59 | XMS_ITS | Encounter Summary ---
Author Organization [facility] Address [address] [place] [address] Care Team Providers Care Speech Assistant Name Role Phone Unavailable Primary Care Provider Unavailabl e Encounter Details Date Type Department Care Team (Late st Contact Info) Description 10/15/2024 Lab Requisition [facility] - Main Lab 299 [place] [address] Jeronimo Hyde MD [address] [place] [address] Calculus of kidney Social History [...] characteristics determined by [facility] in a manner consistent with CLIA requirements. This test has not been cleared or approved by the U.S. Food and Drug Administration. Test performed at [facility], [address], [place] [address] Gabrielle Campbell MD, PhD - Credit Control Administrator Calculus 10/14/2024 10/15/2024 1:1 1 PM EST us Jeronimo Hyde MD LAB BODY FLUIDS AND STOO LS ORDERABLES Final Result [facility] [address] [place] [address] documented in this encounter Visit Diagnoses Diagnosis Calculus of kidney documented in this encounter
--- OUTSIDE RECORDS SUMMARY | 2025-07-28 09:59 | XMS_ITS | Patient Health Record ---
Author Organization [facility] Address [address] [facility] [address] SHAWNA Johns [id number] Care Team Providers Care Career Development Engineer Name Role Phone Anthony Najera Primary Care Provider Allergies Allergen (clinical drug ingredient) Drug/Non Drug Allergy documented on EMR Reaction Allergy Type Onset Date Status amoxicillin Amoxicillin Unknown Drug Allergy Act girish erythromycin Erythromycin Unknown Drug Allergy A ctive Reason For Referral No Information Medications Medication SIG (Take, Route, Frequency, Duration) Notes Start Date End Date Status A-Gqbulw-J-Cysteine OTC Active L-Tyrosine 500 MG 1 capsule [...] Coverage End Date CIGNA PPO [address] [place] [id number] Jessa Newton Self - patient is the insured 2018 Medical (General) History Medical History History ICD Code gerd depression trichotillomania scoliosis eczema periodontal endometriosis celiac (undiagnosed) asthma lactose intolerance migrains broken bone left and right hand Surgical History Surgery Date(Month/Year) Hospitalization History Reason Date(Month/Year) ear infecton 09/01/19
--- OUTSIDE RECORDS SUMMARY | 2025-07-28 09:59 | XMS_ITS | Encounter Summary ---
Author Organization [facility] Address [address] [address] Phone Care Team Providers Care Organization Development Consultant Name Role Phone Kalani Valdes EMAIL OPERATIONS MANAGER Primary Care Provider +1- [phone] Encounter Details Date Type Department Care Team (Late st Contact Info) Description 07/06/2025 Orders Only [facility] 75 [place] [address] Minoo Crews [address] [place] [address] [email or web address] Pelvic pain Social History Tobacco Use [...] Info) Description 09/27/2025 11:00 AM EST Follow-Up [facility] 75 [facility] ASB1-3 [place] [address] Chinmay Cheema MD [address] [place] [address] Infertility [place] [address] [email or web address] documented as of this encounter [...] pain documented in this encounter Care Teams Organization Development Consultant Relationship Specialty Start Date End Date Kalani Valdes NP [address] [place] [address] PCP - General Nurse Practitioner 03/11/25 documented as of this encounter Additional Source Comments The information contained in this document represents components of the legal health record. It is not the complete legal health record.[facility]
== END 2025-07-28 09:13 | disposition home or self-care (01) ==
LOC: HO.HMGAL 09:12
PROVIDERS: PCP Nurse Practitioner Family; Visit Provider Registered Nurse Emergency
DX: J30.89 Other allergic rhinitis (principal)
CPT/HCPCS: 95117; 95165

== ENCOUNTER 2025-08-02 09:16 | Outpatient (AMB) | payer OTHER, SELFPAY | END 2025-08-02 09:17 | disposition home or self-care (01) | LOC: HO.HMGAL 09:16 | PROVIDERS: PCP Nurse Practitioner Family; Visit Provider Registered Nurse Emergency | DX: J30.89 Other allergic rhinitis (principal) | CPT/HCPCS: 95117; 95165 ==

== ENCOUNTER 2025-08-16 09:33 | Outpatient (AMB) | payer OTHER, SELFPAY ==
--- OUTSIDE RECORDS SUMMARY | 2025-08-16 11:19 | XMS_ITS | Encounter Summary ---
Author Organization [facility] Address [address] [place] [address] Care Team Providers Care Repairer Shoe Sticks Name Role Phone Unavailable Primary Care Provider Unavailabl e Encounter Details Date Type Department Care Team (Late st Contact Info) Description 10/15/2024 Lab Requisition [facility] - Main Lab 299 [facility] [place] [address] Jeronimo Hyde MD [address] [place] [address] Calculus of kidney Social History [...] developed and its performance characteristics determined by [facility] in a manner consistent with CLIA requirements. This test has not been cleared or approved by the U.S. Food and Drug Administration. Test performed at [facility], [address], [place] [address] Gabrielle Campbell MD, PhD - Indirect Sales Representative Calculus 10/14/2024 10/15/2024 1:1 1 PM EST us Jeronimo Hyde MD LAB BODY FLUIDS AND STOO LS ORDERABLES Final Result [facility] [address] [place] [address] documented in this encounter Visit Diagnoses Diagnosis Calculus of kidney documented in this encounter
--- OUTSIDE RECORDS SUMMARY | 2025-08-16 11:19 | XMS_ITS | Clinical Summary ---
Author Organization 299 [facility] Address [address] [place] [address] Phone Care Team Providers Care Clinical Trial Leader Name Role Phone Unavailable Primary Care Provider [...] Health Screening 10/15/2024 COVID-19 Vaccine (1 - 2024-2 6 season) 2025 Influenza Vaccine (#1) 2025 RSV [...] complete this topic Insurance [facility] [address] [facility]
== END 2025-08-16 09:35 | disposition home or self-care (01) ==
LOC: HO.HMGAL 09:33
PROVIDERS: PCP Nurse Practitioner Family; Visit Provider Registered Nurse Emergency
DX: J30.89 Other allergic rhinitis (principal)
CPT/HCPCS: 95117; 95165

== ENCOUNTER 2025-08-23 09:31 | Outpatient (AMB) | payer OTHER, SELFPAY | END 2025-08-23 09:32 | disposition home or self-care (01) | LOC: HO.HMGAL 09:31 | PROVIDERS: PCP Nurse Practitioner Family; Visit Provider Registered Nurse Emergency | DX: J30.89 Other allergic rhinitis (principal) | CPT/HCPCS: 95117; 95165 ==

== ENCOUNTER 2025-09-01 09:13 | Outpatient (AMB) | payer OTHER, SELFPAY ==
--- OUTSIDE RECORDS SUMMARY | 2025-09-01 10:08 | XMS_ITS | Patient Health Record ---
Author Organization [facility] Address [address] [facility] [address] SHAWNA Johns [phone] Care Team Providers Care Personal Lines Account Manager Name Role Phone Anthony Najera Primary Care Provider [phone] Allergies Allergen (clinical drug ingredient) Drug/Non Drug Allergy documented on EMR Reaction Allergy Type Onset Date Status amoxicillin Amoxicillin Unknown Drug Allergy Act girish erythromycin Erythromycin Unknown Drug Allergy A ctive Reason For Referral No Information Medications Medication SIG (Take, Route, Frequency, Duration) Notes Start Date End Date Status G-Ernebn-L-Cysteine OTC Active L-Tyrosine 500 MG 1 capsule [...] Coverage End Date CIGNA PPO [address] [place] [address] [id number] Jessa Newton Self - patient is the insured 2018 Medical (General) History Medical History History ICD Code gerd depression trichotillomania scoliosis eczema periodontal endometriosis celiac (undiagnosed) asthma lactose intolerance migrains broken bone left and right hand Surgical History Surgery Date(Month/Year) Hospitalization History Reason Date(Month/Year) ear infecton 09/01/19
--- OUTSIDE RECORDS SUMMARY | 2025-09-01 10:08 | XMS_ITS | Clinical Summary ---
Author Organization [facility] Address [address] [place] [address] Phone Care Team Providers Care Clerical Order Filler Name Role Phone Unavailable Primary Care Provider [...] age to complete this topic [place] [address] [facility]
--- OUTSIDE RECORDS SUMMARY | 2025-09-01 10:09 | XMS_ITS | Encounter Summary ---
Author Organization [facility] Address [address] [place] [address] Care Team Providers Care Compressor Operator Portable Name Role Phone Unavailable Primary Care Provider Unavailabl e Encounter Details Date Type Department Care Team (Late st Contact Info) Description 10/15/2024 Lab Requisition [facility] - Main Lab 299 [facility] [address] Jeronimo Hyde MD [address] [place] [address] Calculus of kidney Social History [...] developed and its performance characteristics determined by [facility] in a manner consistent with CLIA requirements. This test has not been cleared or approved by the U.S. Food and Drug Administration. Test performed at [facility], [address], [place] [address] Gabrielle Campbell MD, PhD - Dumpcart Driver Calculus 10/14/2024 10/15/2024 1:1 1 PM EST us Jeronimo Hyde MD LAB BODY FLUIDS AND STOO LS ORDERABLES Final Result [facility] [address] [place] [address] documented in this encounter Visit Diagnoses Diagnosis Calculus of kidney documented in this encounter
--- OUTSIDE RECORDS SUMMARY | 2025-09-01 10:09 | XMS_ITS | Patient Health Record ---
Author Organization [facility] Billing Info Address [address] [place] [address] Phone [phone] Care Team Providers Care Sales Associate Name Role Phone CHEYENNEBISHOP Almendarez Primary Care Provider Unavailabl e Reason For Referral No Information Social History Sex Observation Social History Observation Description Sex Observation Female Social History Social History Social Info Question Answer Notes Tobacco Status: Patient is a never smoker Illicit Drug Use: Patient/Family reports: No illicit d rug use Alcohol Use: Patient does not use alcohol *DO NOT USE * Tobacco Status (CQW): Patient is Never smoker Ambulatory Status: : is independent Plan Of Treatment No Information Insurance Providers Payer Name Payer Address Payer Phone Subscriber Number Group Number Insured Name Patient Relationship to Insured Coverage Start Date Coverage End Date CIGNA PPO/188 061 [address] [place], [place] [id number] Jessa Dc Self - patient is the insured 8 8
== END 2025-09-01 09:13 | disposition home or self-care (01) ==
LOC: HO.HMGAL 09:13
PROVIDERS: PCP Nurse Practitioner Family; Visit Provider Registered Nurse Emergency
DX: J30.89 Other allergic rhinitis (principal)
CPT/HCPCS: 95117; 95165

== ENCOUNTER 2025-09-06 12:42 | Outpatient (AMB) | payer OTHER, SELFPAY ==
--- OUTSIDE RECORDS SUMMARY | 2025-09-06 15:48 | XMS_ITS | Patient Health Record ---
Author Organization [facility] Billing Info Address [address] [place] [address] Phone [phone] Care Team Providers Care Market Risk Specialist Name Role Phone CHEYENNEBISHOP Almendarez Primary Care [...] End Date CIGNA PPO/188 061 [address] [place], [place] [id number] [phone] [id number] Jessa Dc Self - patient is the insured 8 8
--- OUTSIDE RECORDS SUMMARY | 2025-09-06 15:48 | XMS_ITS | Clinical Summary ---
Author Organization 299 [facility] Address [address] [place] [address] Phone Care Team Providers Care Grain Elevator Superintendent Name Role Phone Unavailable Primary Care Provider [...] age to complete this topic Insurance DR [facility] [address] [facility]
--- OUTSIDE RECORDS SUMMARY | 2025-09-06 15:48 | XMS_ITS | Clinical Summary ---
Author Organization [facility] Address [address] [address] Phone Care Team Providers Care Teamcenter Solution Architect Name Role Phone Kalani Valdes ENTRY LEVEL MACHINE OPERATOR Primary Care Provider +1- [phone] Allergies Active Allergy Reactions Criticality Noted Date [...] mouth daily. 30 tablet 3 5 Active Active Problems Problem Noted Date Diagnosed Date Endometriosis of pelvic peritoneum 04/06/2025 Encounters Date Type Department Care Team Description 07/14/2025 Orders Only [facility] for [facility]ertility [facility] Reproductive Surgery [address] [place] [address] Riac Price RN Endometriosis of pelvic peritoneum (Primary Dx); Pelvic pain 07/06/2025 1:00 PM EDT Follow-Up [facility] for [facility]ertility [facility] Reproductive Surgery [address] [place] [address] Chinmay Cheema MD Endometriosis of pelvic peritoneum (Primary Dx); Pelvic pain 07/06/2025 Orders Only [facility] [address] [place] [address] Minoo Crews Pelvic pain from Last 3 [...] Info) Description 09/27/2025 11:00 AM EST Follow-Up [facility] [address] [place], [place] [address]3 [place] [address] Chinmay Cheema MD [address] [place] [address] for Infertility [place] [address] [email or web address] Health Maintenance Due Date Last Done [...] Uterus/Adnexa Ultrasound Diagnostic us Chinmay Cheema MD IM US PELVIS Final Result from Last 3 Months Insurance [facility] [place] [id number] WAYNE POS Care Teams Teamcenter Solution Architect Relationship Specialty Start Date End Date Kalani Valdes NP [address] [place] [address] JOJO MOLINA [address] PCP - General Nurse Practitioner 03/11/25 Additional Source Comments The information contained in this document represents components of the legal health record. It is not the complete legal health record.[facility]
--- OUTSIDE RECORDS SUMMARY | 2025-09-06 15:48 | XMS_ITS | Encounter Summary ---
Author Organization [facility] Address [address] [place] [address] Care Team Providers Care Retail Merchandiser Technician Name Role Phone Unavailable Primary Care Provider Unavailabl e Encounter Details Date Type Department Care Team (Late st Contact Info) Description 10/15/2024 Lab Requisition [facility] - Main Lab 299 [facility] [place] [address] Jeronimo Hyde MD [address] [place] [address] Calculus of kidney Social History [...] developed and its performance characteristics determined by [facility] in a manner consistent with CLIA requirements. This test has not been cleared or approved by the U.S. Food and Drug Administration. Test performed at [facility], [address], [place] [address] Gabrielle Campbell MD, PhD - Sap Fico Business Analyst Calculus 10/14/2024 10/15/2024 1:1 1 PM EST us Jeronimo Hyde MD LAB BODY FLUIDS AND STOO LS ORDERABLES Final Result [facility] [address] [place] [address] documented in this encounter Visit Diagnoses Diagnosis Calculus of kidney documented in this encounter
--- OUTSIDE RECORDS SUMMARY | 2025-09-06 15:48 | XMS_ITS | Patient Health Record ---
Author Organization [facility] Address [id number] [facility] [address] [place] [phone] Care Team Providers Care Stone Setter Name Role Phone Anthony Najera Primary Care Provider Allergies Allergen (clinical drug ingredient) Drug/Non Drug Allergy documented on EMR Reaction Allergy Type Onset Date Status amoxicillin Amoxicillin Unknown Drug Allergy Act girish erythromycin Erythromycin Unknown Drug Allergy A ctive Reason For Referral No Information Medications Medication SIG (Take, Route, Frequency, Duration) Notes Start Date End Date Status M-Twbpra-A-Cysteine OTC Active L-Tyrosine 500 MG 1 capsule [...] Coverage End Date [employer] PPO [address] [place] [phone] [id number] Jessa Newton Self - patient is the insured 2018 Medical (General) History Medical History History ICD Code gerd depression trichotillomania scoliosis eczema periodontal endometriosis celiac (undiagnosed) asthma lactose intolerance migrains broken bone left and right hand Surgical History Surgery Date(Month/Year) Hospitalization History Reason Date(Month/Year) ear infecton 09/01/19
== END 2025-09-06 12:42 | disposition home or self-care (01) ==
LOC: HO.HMGAL 12:42
PROVIDERS: PCP Nurse Practitioner Family; Visit Provider Registered Nurse Emergency
DX: J30.89 Other allergic rhinitis (principal)
CPT/HCPCS: 95117; 95165